=== PATIENT | female | born 1945 | race Caucasian/White ===

== ENCOUNTER → 2016-11-06 | Outpatient (CLI) | payer MEDICARE ==
[~2016-11-06] MED LIST: ALBUTEROL NEB INH; ALTA10CA3 PO; BISO5TAB5 PO; CLOP75TA2 PO; COMBIVENT INH; LEVO750T PO; LOPI600T PO; METF1000 PO; MONT10TA2 PO; NASAL SPRAY; PRED10TA2 PO; SPIRIVA INH; SYMBICORT INH; TRAZO50TA PO; ZOCO20TA PO
[2016-11-06 11:26] LABS: BASO % 0.4 % (0.0-1.0); EOS # 0.4 K/mm3 (0.0-0.50); EOS % 4.5 % (0.0-3.0); LYMPH # 1.8 K/mm3 (1.5-4.5); LYMPH % 18.9 % (24.0-44.0); MEAN CORPUSCULAR HEMOGLOBIN 29.5 pg (27.0-33.0); MEAN CORPUSCULAR HGB CONC 32.5 g/dl (32.0-36.5); MEAN CORPUSCULAR VOLUME 90.6 fl (80.0-96.0); MONO # 0.5 K/mm3 (0.0-0.8); MONO % 5.4 % (0.0-5.0); NEUTROPHILS # 6.1 K/mm3 (1.8-7.7); NEUTROPHILS % 69.1 % (36.0-66.0); WHITE BLOOD COUNT 8.8 K/mm3 (4.0-10.0)
[2016-11-06 12:28] LABS: ALBUMIN 3.5 GM/DL (3.2-5.2); ALKALINE PHOSPHATASE 91 U/L (45-117); ALT/SGPT 13 U/L (12-78); ANION GAP 7 MEQ/L (8-16); AST/SGOT 10 U/L (15-37); BILIRUBIN,TOTAL 0.5 MG/DL (0.2-1.0); BLOOD UREA NITROGEN 13 MG/DL (7-18); CALCIUM LEVEL 8.9 MG/DL (8.8-10.2); CARBON DIOXIDE LEVEL 29 MEQ/L (21-32); CHLORIDE LEVEL 103 MEQ/L (98-107); CHOLESTEROL LEVEL 93 MG/DL (<200); CREATININE FOR GFR 0.69 MG/DL (0.55-1.02); FREE T4 1.26 NG/DL (0.76-1.46); GLOMERULAR FILTRATION RATE > 60.0 (>39); GLUCOSE, FASTING 100 MG/DL (83-110); POTASSIUM SERUM 4.7 MEQ/L (3.5-5.1); SODIUM LEVEL 139 MEQ/L (136-145); TOTAL PROTEIN 7.4 GM/DL (6.4-8.2); TRIGLYCERIDES LEVEL 105 MG/DL (<150)
== END ==
LOC: M WUC 10:22
PROVIDERS: ATTEND Nurse Practitioner Adult Health
DX: E11.8 Type 2 diabetes mellitus with unspecified complications (principal); E55.9 Vitamin D deficiency, unspecified; Z79.899 Other long term (current) drug therapy; E78.00 Pure hypercholesterolemia, unspecified

== ENCOUNTER → 2017-02-12 | Outpatient (CLI) | payer MEDICARE ==
[2017-02-12 12:19] LABS: BASO % 0.5 % (0.0-1.0); EOS # 0.3 10^3/uL (0.0-0.50); EOS % 3.3 % (0.0-3.0); IMMATURE GRANULOCYTE % 0.4 % (0-0); LYMPH # 1.7 10^3/uL (1.5-4.5); LYMPH % 20.1 % (24.0-44.0); MEAN CORPUSCULAR HEMOGLOBIN 27.7 pg (27.0-33.0); MEAN CORPUSCULAR HGB CONC 30.9 g/dl (32.0-36.5); MEAN CORPUSCULAR VOLUME 89.7 fl (80.0-96.0); MONO # 0.6 10^3/uL (0.0-0.8); MONO % 6.9 % (0.0-5.0); NEUTROPHILS # 5.7 10^3/uL (1.8-7.7); NEUTROPHILS % 68.8 % (36.0-66.0); PLATELET COUNT, AUTOMATED 273 10^3/uL (150-450); RED CELL DISTRIBUTION WIDTH 14.6 % (11.5-14.5); WHITE BLOOD COUNT 8.2 10^3/uL (4.0-10.0)
[2017-02-12 14:06] LABS: ALBUMIN 3.6 GM/DL (3.2-5.2); ALBUMIN/GLOBULIN RATIO 0.88 (1.00-1.93); ALKALINE PHOSPHATASE 83 U/L (45-117); ALT/SGPT 16 U/L (12-78); ANION GAP 9 MEQ/L (8-16); AST/SGOT 13 U/L (15-37); BILIRUBIN,TOTAL 0.6 MG/DL (0.2-1.0); BLOOD UREA NITROGEN 8 MG/DL (7-18); CALCIUM LEVEL 9.1 MG/DL (8.8-10.2); CARBON DIOXIDE LEVEL 31 MEQ/L (21-32); CHLORIDE LEVEL 100 MEQ/L (98-107); CHOLESTEROL LEVEL 116 MG/DL (<200); CREATININE FOR GFR 0.69 MG/DL (0.55-1.02); FREE T4 1.33 NG/DL (0.76-1.46); GLOMERULAR FILTRATION RATE > 60.0 (>39); GLUCOSE, FASTING 100 MG/DL (83-110); POTASSIUM SERUM 4.6 MEQ/L (3.5-5.1); SODIUM LEVEL 140 MEQ/L (136-145); TOTAL PROTEIN 7.7 GM/DL (6.4-8.2); TRIGLYCERIDES LEVEL 129 MG/DL (<150)
== END ==
LOC: M WUC 10:41
PROVIDERS: ATTEND Nurse Practitioner Adult Health
DX: E78.00 Pure hypercholesterolemia, unspecified (principal); E55.9 Vitamin D deficiency, unspecified; E11.8 Type 2 diabetes mellitus with unspecified complications; E78.1 Pure hyperglyceridemia; Z79.899 Other long term (current) drug therapy

== ENCOUNTER → 2017-05-24 | Outpatient (CLI) | payer MEDICARE ==
[2017-05-24 12:44] LABS: BASO # 0.1 10^3/uL (0.0-0.2); BASO % 0.9 % (0.0-1.0); EOS # 0.4 10^3/uL (0.0-0.50); EOS % 5.2 % (0.0-3.0); HEMATOCRIT 45.4 % (36.0-47.0); HEMOGLOBIN 14.2 g/dl (12.0-16.0); IMMATURE GRANULOCYTE % 0.4 % (0-0); LYMPH # 1.6 10^3/uL (1.5-4.5); LYMPH % 23.8 % (24.0-44.0); MEAN CORPUSCULAR HEMOGLOBIN 28.3 pg (27.0-33.0); MEAN CORPUSCULAR HGB CONC 31.3 g/dl (32.0-36.5); MEAN CORPUSCULAR VOLUME 90.4 fl (80.0-96.0); MONO # 0.5 10^3/uL (0.0-0.8); MONO % 7.7 % (0.0-5.0); NEUTROPHILS # 4.2 10^3/uL (1.8-7.7); PLATELET COUNT, AUTOMATED 295 10^3/uL (150-450); RED BLOOD COUNT 5.02 10^6/uL (4.00-5.40); RED CELL DISTRIBUTION WIDTH 13.5 % (11.5-14.5); WHITE BLOOD COUNT 6.7 10^3/uL (4.0-10.0)
[2017-05-24 13:20] LABS: ESTIMATED AVERAGE GLUCOSE 146 MG/DL (60-110); HEMOGLOBIN A1c 6.7 %
[2017-05-24 13:26] LABS: TOTAL 25(OH) VITAMIN D 58.3 NG/ML (30.0-100.0)
[2017-05-24 13:27] LABS: ALBUMIN 3.7 GM/DL (3.2-5.2); ALBUMIN/GLOBULIN RATIO 0.97 (1.00-1.93); ALKALINE PHOSPHATASE 80 U/L (45-117); ALT/SGPT 11 U/L (12-78); ANION GAP 6 MEQ/L (8-16); AST/SGOT 15 U/L (7-37); BILIRUBIN,TOTAL 0.4 MG/DL (0.2-1.0); BLOOD UREA NITROGEN 14 MG/DL (7-18); CALCIUM LEVEL 8.9 MG/DL (8.8-10.2); CARBON DIOXIDE LEVEL 31 MEQ/L (21-32); CHLORIDE LEVEL 105 MEQ/L (98-107); CHOLESTEROL LEVEL 117 MG/DL (<200); CHOLESTEROL RISK RATIO 2.207 (<5); FREE T4 1.24 NG/DL (0.76-1.46); GLOMERULAR FILTRATION RATE > 60.0 (>39); GLUCOSE, FASTING 96 MG/DL (70-100); HDL CHOLESTEROL 53 MG/DL (>40); NON-HDL-C 64 MG/DL; POTASSIUM SERUM 4.6 MEQ/L (3.5-5.1); SODIUM LEVEL 142 MEQ/L (136-145); TOTAL PROTEIN 7.5 GM/DL (6.4-8.2); TRIGLYCERIDES LEVEL 140 MG/DL (<150)
[2017-05-24 13:37] LABS: CREATININE, URINE 26.3 MG/DL; MALB URINE SIEMENS < 5.0 MG/L
== END ==
LOC: M WUC 09:20
DX: E78.1 Pure hyperglyceridemia (principal); E78.00 Pure hypercholesterolemia, unspecified; E55.9 Vitamin D deficiency, unspecified; E11.8 Type 2 diabetes mellitus with unspecified complications; Z79.899 Other long term (current) drug therapy
CPT/HCPCS: 84443

== ENCOUNTER → 2017-08-27 | Outpatient (CLI) | payer MEDICARE ==
[2017-08-27 12:54] LABS: BASO % 0.4 % (0.0-1.0); EOS # 0.2 10^3/uL (0.0-0.50); EOS % 2.3 % (0.0-3.0); HEMATOCRIT 42.5 % (36.0-47.0); HEMOGLOBIN 13.3 g/dl (12.0-15.5); IMMATURE GRANULOCYTE # 0.1 10^3/uL (0-0); IMMATURE GRANULOCYTE % 0.7 % (0-3.0); LYMPH # 1.8 10^3/uL (1.5-4.5); LYMPH % 19.1 % (24.0-44.0); MEAN CORPUSCULAR HGB CONC 31.3 g/dl (32.0-36.5); MEAN CORPUSCULAR VOLUME 89.5 fl (80.0-96.0); MONO # 0.7 10^3/uL (0.0-0.8); MONO % 7.3 % (0.0-5.0); NEUTROPHILS # 6.7 10^3/uL (1.8-7.7); NEUTROPHILS % 70.2 % (36.0-66.0); PLATELET COUNT, AUTOMATED 310 10^3/uL (150-450); RED BLOOD COUNT 4.75 10^6/uL (4.00-5.40); RED CELL DISTRIBUTION WIDTH 13.6 % (11.5-14.5); WHITE BLOOD COUNT 9.5 10^3/uL (4.0-10.0)
[2017-08-27 13:31] LABS: TOTAL 25(OH) VITAMIN D 60.2 NG/ML (30.0-100.0)
[2017-08-27 13:39] LABS: ESTIMATED AVERAGE GLUCOSE 134 MG/DL (60-110); HEMOGLOBIN A1c 6.3 %
[2017-08-27 14:21] LABS: ALBUMIN 3.3 GM/DL (3.2-5.2); ALBUMIN/GLOBULIN RATIO 0.75 (1.00-1.93); ALKALINE PHOSPHATASE 115 U/L (45-117); ALT/SGPT 12 U/L (12-78); ANION GAP 9 MEQ/L (8-16); AST/SGOT 12 U/L (7-37); BILIRUBIN,TOTAL 0.3 MG/DL (0.2-1.0); BLOOD UREA NITROGEN 12 MG/DL (7-18); CALCIUM LEVEL 8.9 MG/DL (8.8-10.2); CARBON DIOXIDE LEVEL 30 MEQ/L (21-32); CHLORIDE LEVEL 103 MEQ/L (98-107); CHOLESTEROL LEVEL 94 MG/DL (<200); CREATININE FOR GFR 0.74 MG/DL (0.55-1.30); FREE T4 1.36 NG/DL (0.76-1.46); GLOMERULAR FILTRATION RATE > 60.0 (>39); GLUCOSE, FASTING 74 MG/DL (70-100); HDL CHOLESTEROL 50 MG/DL (>40); LDL CHOLESTEROL 23.4 MG/DL (<100); NON-HDL-C 44 MG/DL; POTASSIUM SERUM 4.8 MEQ/L (3.5-5.1); SODIUM LEVEL 142 MEQ/L (136-145); TOTAL PROTEIN 7.7 GM/DL (6.4-8.2); TRIGLYCERIDES LEVEL 103 MG/DL (<150)
== END ==
LOC: M WUC 10:42
DX: E78.1 Pure hyperglyceridemia (principal); E55.9 Vitamin D deficiency, unspecified; E11.8 Type 2 diabetes mellitus with unspecified complications; Z79.899 Other long term (current) drug therapy
CPT/HCPCS: 84443

== ENCOUNTER 2018-09-13 14:06 | Emergency (ER) | payer MEDICARE ==
[~2018-09-13] VITALS: Ht 154.9 cm; Wt 57.7 kg
[~2018-09-13 14:06] MED LIST changes: +TRAZ1TAB36 PO; -TRAZO50TA PO
[2018-09-13] MEDS ORDERED: COMBAER6 INH (14:44)
[2018-09-13] MEDS ORDERED: SYMB16INH INH (14:44)
[2018-09-13] MEDS ORDERED: JANU100T14 OR (14:44)
[2018-09-13 14:57] LABS: BASO % 0.2 % (0.0-1.0); HEMATOCRIT 43.3 % (36.0-47.0); HEMOGLOBIN 13.5 g/dl (12.0-15.5); LYMPH # 0.7 10^3/uL (1.5-4.5); LYMPH % 6.7 % (24.0-44.0); MEAN CORPUSCULAR HEMOGLOBIN 27.7 pg (27.0-33.0); MEAN CORPUSCULAR HGB CONC 31.2 g/dl (32.0-36.5); MEAN CORPUSCULAR VOLUME 88.9 fl (80.0-96.0); MONO # 0.1 10^3/uL (0.0-0.8); MONO % 1.4 % (0.0-5.0); NEUTROPHILS # 8.9 10^3/uL (1.8-7.7); NEUTROPHILS % 91.2 % (36.0-66.0); PLATELET COUNT, AUTOMATED 309 10^3/uL (150-450); RED BLOOD COUNT 4.87 10^6/uL (4.00-5.40); WHITE BLOOD COUNT 9.7 10^3/uL (4.0-10.0)
[2018-09-13 15:07] LABS: INR 1.07
[2018-09-13 15:08] LABS: PARTIAL THROMBOPLASTIN TIME 36.5 SECONDS (25.4-37.6)
--- NOTE | 2018-09-13 15:23 | REP ---
CHEST TWO VIEWS: Two views of the chest performed and compared to a prior study of 10/03/2012. Diffuse interstitial fibrotic change appears essentially stable. No definite superimposed acute infiltrate is seen. The heart appears slightly enlarged. There is calcification of the thoracic aorta. The mediastinal silhouette is unchanged. There are degenerative changes of the spine . IMPRESSION: Stable chronic findings without definite superimposed acute pulmonary disease. Electronically Signed by Sherwin Parks MD 09/14/2018 09:26 A
[2018-09-13 16:32] LABS: ALBUMIN 3.1 GM/DL (3.2-5.2); ALT/SGPT 13 U/L (12-78); BILIRUBIN,DIRECT < 0.1 MG/DL (0.0-0.2); BILIRUBIN,TOTAL 0.3 MG/DL (0.2-1.0); BLOOD UREA NITROGEN 13 MG/DL (7-18); CALCIUM LEVEL 8.5 MG/DL (8.8-10.2); CARBON DIOXIDE LEVEL 31 MEQ/L (21-32); CHLORIDE LEVEL 100 MEQ/L (98-107); CPK CREATINE PHOSPHOKINASE 40 U/L (26-192); CREATININE FOR GFR 0.91 MG/DL (0.55-1.30); GLOMERULAR FILTRATION RATE > 60.0 (>39); GLUCOSE, FASTING 208 MG/DL (70-100); LIPASE 227 U/L (73-393); MB/CK RELATIVE INDEX 4.25 (< OR =4); POTASSIUM SERUM 4.8 MEQ/L (3.5-5.1); SODIUM LEVEL 139 MEQ/L (136-145); THYROID STIMULATING HORMONE 0.969 uIU/ML (0.358-3.740); TOTAL PROTEIN 7.7 GM/DL (6.4-8.2); TROPONIN I < 0.02 NG/ML (< 0.10)
[2018-09-13] MEDS ORDERED: CLOPIDOGREL 300 MG TAB (PLAVIX) PO STA (17:09)
[2018-09-13] MEDS ORDERED: HEPARIN SOD (PORCINE) 5000 UNITS/ML VIAL IV ONE (17:15)
[2018-09-13] MEDS ORDERED: methylPREDNISolone INJ 125 MG/2 ML VIAL (J2930) IV ONE (17:15)
[2018-09-13] MEDS ORDERED: CLOPIDOGREL 300 MG TAB (PLAVIX) PO ONE (17:15)
[2018-09-13] MEDS ORDERED: IPRATROPIUM 0.5MG/ALBUTEROL 2.5MG INH SOL UD 3ML (DUONEB)(J7620) NEB ONE (17:15)
[2018-09-13] MEDS ORDERED: HEPARIN DRIP 25,000 UNITS in APPROPRIATE DILUENT 1 EA IV SCH (17:30)
[2018-09-13 17:50] VITALS: BP 168/72
--- NOTE | 2018-09-14 06:11 | ECGEPIP ---
[facility] - ED Test Date: 2018-09-13 Pat Name: SPENCER LANZA Department: Room: - Gender: F Nursing Support Worker: ct : 1945 Requested By: SUPRIYA Lau Order Number: [id number] Reading MD: Tom Stuart Measurements Intervals [place] Rate: 83 P: 77 CA: 203 QRS: -10 QRSD: 83 T: 90 QT: 350 QTc: 413 Interpretive Statements SINUS RHYTHM ANTEROSEPTAL MYOCARDIAL INFARCTION, OF INDETERMINATE AGE NSTTW ABNORMALITIES NO PRIORS FOR COMPARISON Electronically Signed on 09-14-2018 6:11:24 EDT by Tom Stuart
== END 2018-09-13 17:50 | disposition short-term general hospital (02) ==
LOC: EDBD 14:06 → M ED 14:06
DX: I20.0 Unstable angina (principal); I21.09 ST elevation (STEMI) myocardial infarction involving other coronary artery of anterior wall; E11.9 Type 2 diabetes mellitus without complications; I10 Essential (primary) hypertension; E87.5 Hyperkalemia; J45.909 Unspecified asthma, uncomplicated; J44.9 Chronic obstructive pulmonary disease, unspecified; I35.8 Other nonrheumatic aortic valve disorders; Z72.0 Tobacco use; Z79.899 Other long term (current) drug therapy; Z88.0 Allergy status to penicillin; Z88.8 Allergy status to other drugs, medicaments and biological substances; Z88.1 Allergy status to other antibiotic agents
CPT/HCPCS: 71046; 80048; 80076; 82550; 82553; 83690; 84439; 84443; 84484; 85025; 85610; 85730; 93005; 93041; 94640; 94760; 96374; 99285; J2930

== ENCOUNTER → 2018-09-27 | Outpatient (CLI) | payer MEDICARE ==
[~2018-09-27] MED LIST changes: +COMBAER6 INH; +JANU100T14 OR; +SYMB16INH INH
[2018-09-27 18:50] LABS: INR 1.92; PROTHROMBIN TIME 22.3 SECONDS (12.1-14.4)
== END ==
LOC: M WUC 15:47
DX: I97.89 Other postprocedural complications and disorders of the circulatory system, not elsewhere classified (principal); I48.91 Unspecified atrial fibrillation

== ENCOUNTER → 2018-09-30 | Outpatient (CLI) | payer MEDICARE ==
[2018-09-30 16:36] LABS: INR 1.54; PROTHROMBIN TIME 18.7 SECONDS (12.1-14.4)
== END ==
LOC: M WUC 15:25
PROVIDERS: ATTEND Nurse Practitioner Adult Health
DX: Z51.81 Encounter for therapeutic drug level monitoring (principal); Z79.899 Other long term (current) drug therapy; Z79.01 Long term (current) use of anticoagulants

== ENCOUNTER → 2018-10-20 | Outpatient (REF) | payer MEDICARE ==
[2018-10-20 13:50] LABS: BLOOD UREA NITROGEN 12 MG/DL (7-18); CALCIUM LEVEL 7.7 MG/DL (8.8-10.2); CARBON DIOXIDE LEVEL 36 MEQ/L (21-32); CHLORIDE LEVEL 100 MEQ/L (98-107); CREATININE FOR GFR 0.84 MG/DL (0.55-1.30); GLOMERULAR FILTRATION RATE > 60.0 (>39); GLUCOSE, FASTING 263 MG/DL (70-100); MAGNESIUM LEVEL 1.8 MG/DL (1.8-2.4); POTASSIUM SERUM 3.9 MEQ/L (3.5-5.1); SODIUM LEVEL 140 MEQ/L (136-145)
== END ==
LOC: M LAB REF 12:12
PROVIDERS: ATTEND Nurse Practitioner Adult Health
DX: E83.51 Hypocalcemia (principal); Z79.52 Long term (current) use of systemic steroids; E11.65 Type 2 diabetes mellitus with hyperglycemia

== ENCOUNTER → 2018-12-21 | Outpatient (REF) | payer MEDICARE ==
[2018-12-21 13:55] LABS: CALCIUM LEVEL 8.6 MG/DL (8.8-10.2); CREATININE FOR GFR 0.98 MG/DL (0.55-1.30); GLOMERULAR FILTRATION RATE 59.4 (>39); POTASSIUM SERUM 4.8 MEQ/L (3.5-5.1)
== END ==
LOC: M LAB REF 12:51
PROVIDERS: ATTEND Internal Medicine Cardiovascular Disease
DX: I48.91 Unspecified atrial fibrillation (principal); R60.9 Edema, unspecified

== ENCOUNTER 2020-01-28 13:40 | Inpatient (IN) | payer MEDICARE ==
[~2020-01-28] VITALS: Ht 154.9 cm; Wt 56.5 kg
[2020-01-28] VITALS (8 sets, daily range): BP systolic 134–170; BP diastolic 59–73
[~2020-01-28 13:40] MED LIST changes: -JANU100T14 OR; +JANU100T14 PO
[2020-01-28] MEDS ORDERED: METO25TA4 PO (14:30)
[2020-01-28] MEDS ORDERED: ELIQ5TAB PO (14:30)
[2020-01-28] MEDS ORDERED: AMLO2.5T3 PO (14:30)
[2020-01-28] MEDS ORDERED: INCR1INH INH (14:30)
[2020-01-28] MEDS ORDERED: FURO20TA2 PO (14:30)
[2020-01-28] MEDS ORDERED: RAMI1CAP26 PO (14:30)
[2020-01-28] MEDS ORDERED: MONT10TA4 PO (14:30)
[2020-01-28] MEDS ORDERED: ATOR80TA59 PO (14:30)
--- NOTE | 2020-01-28 15:00 | REPVR ---
PROCEDURE INFORMATION: Exam: XR Chest, 1 View Exam date and time: 01/28/2020 2:08 PM Age: 74 years old Clinical indication: Cough and shortness of breath; Additional info: Dyspnea/cough TECHNIQUE: Imaging protocol: XR of the chest Views: 1 view. COMPARISON: CR Chest, 2 view PA, Lat 09/13/2018 2:58 PM FINDINGS: Lungs: The lungs are again hyperinflated. There is again mild bibasilar atelectasis/scarring. The lungs are otherwise clear. Pleural space: Unremarkable. No pleural effusion. No pneumothorax. Heart/Mediastinum: The cardiomediastinal silhouette is fairly stable in appearance, allowing for differences in technique. Bones/joints: There has been interval median sternotomy. IMPRESSION: Hyperinflation and chronic changes, as on 09/13/18, without new disease. Electronically signed by: Sacha Pena On 01/28/2020 14:59:44 PM
[2020-01-28 15:18] LABS: BASO % 0.3 % (0.0-1.0); EOS # 0.5 10^3/uL (0.0-0.5); HEMATOCRIT 29.4 % (36.0-47.0); HEMOGLOBIN 8.3 g/dl (12.0-15.5); LYMPH # 1.5 10^3/uL (1.5-5.0); LYMPH % 13.3 % (24.0-44.0); MEAN CORPUSCULAR HEMOGLOBIN 24.2 pg (27.0-33.0); MEAN CORPUSCULAR HGB CONC 28.2 g/dl (32.0-36.5); MEAN CORPUSCULAR VOLUME 85.7 fl (80.0-96.0); MONO # 0.8 10^3/uL (0.0-0.8); MONO % 6.6 % (0.0-5.0); NEUTROPHILS # 8.6 10^3/uL (1.5-8.5); NEUTROPHILS % 75.5 % (36.0-66.0); PLATELET COUNT, AUTOMATED 287 10^3/uL (150-450); RED BLOOD COUNT 3.43 10^6/uL (4.00-5.40); WHITE BLOOD COUNT 11.4 10^3/uL (4.0-10.0)
[2020-01-28 16:00] LABS: ALBUMIN 2.7 GM/DL (3.2-5.2); ALT/SGPT 16 U/L (12-78); BILIRUBIN,DIRECT < 0.1 MG/DL (0.0-0.2); BILIRUBIN,TOTAL 0.2 MG/DL (0.2-1.0); NT-PRO BNP 468 PG/ML (<125); TOTAL PROTEIN 6.9 GM/DL (6.4-8.2)
[2020-01-28] MEDS ORDERED: PLAV1TAB2 PO (16:58)
--- NOTE | 2020-01-28 17:45 | HPEPDOC ---
[facility] Medical History & Physical Date of Admission Jan 28, 2020 Date of Service: Jan 28, 2020 Attending Physician: FLAKO FUENTES MD History and Physical CHIEF COMPLAINT: SOB HISTORY OF PRESENT ILLNESS: This is a 74 y/o F with PMHx COPD on 3L home O2, hypercapnia, DM, HTN, HLD, CAD s/p CABG, AF on eliquis on presents c/o SOB and BRBPR. Pt states SOB started 2 weeks ago with exertion. She has baseline COPD on 3L O2. Has non productive cough, and exertional dyspnea. No fevers/chills. Has been increasing here O2 with exertional now to 5L. Has no SOB while at rest. No CP/Palpitations. No N/V/abd pain. Pt notes that today, she had BRBPR x4. Mostly red, however she notes her stools are typically dark from iron supplments. Troponin negative in the ED. No acute ST changes on EKG. PAST MEDICAL HISTORY: As per HPI PAST SURGICAL HISTORY: b/l cataracts, tubal ligation, appendectomy. CABG SOCIAL HISTORY:45 pack year, occasional alcohol. FAMILY HISTORY:Non contributory ALLERGIES: Please see below. REVIEW OF SYSTEMS: HEENT: Denies sore throat/headache CARDIOVASCULAR: Denies chest pain/palpitations RESPIRATORY: + shortness of breath. No cough GASTROINTESTINAL: denies nausea/vomiting GENITOURINARY: Denies dysuria/urinary urgency. MUSCULOSKELETAL: Denies myalgias/arthralgias NEUROLOGICAL: Denies any focal weakness HOME MEDICATIONS: Please see below. PHYSICAL EXAMINATION: Vitals: (see below) General: No acute distress, laying comfortably in bed. HEENT: Moist mucous membranes. Neck: No JVD or lymphadenopathy Cardiac: RRR, No murmurs Pulm: Diminished breath sounds b/l with prolonged exp phase. No wheezing, rhonchi Abd: NT/ND + BS Ext: No edema or cyanosis LABORATORY DATA: See below. IMAGING: CXR 01/27 - hyperinflation; no infiltrate ASSESSMENT/PLAN: 1. Symptomatic anemia - transfuse 2U PRBC. NPO. Hold eliquis and antiplatelets. GI consult; discussed with Dr. Ford. CBC q6h. PPI IV BID. 2. COPD exacerbation - Check ABG. CXR with no infiltrate. Nebs. 3. H/o CABG - hold antiplatelets. 4. DM - SSI 5. HTN - Cont ramipril. Hold diuretics. DVT Prophy: SCDs Vital Signs Vital Signs Date Time Temp Pulse Resp B/P (MAP) Pulse Ox O2 Delivery O2 Flow Rate FiO2 01/28/20 14:31 Nasal Cannula 5.0 01/28/20 14:20 01/28/20 13:41 98.7 97 26 97 Laboratory Data Labs 24H Laboratory Tests 2 01/28/20 15:07: Immature Granulocyte % (Auto) 0.3, Neutrophils (%) (Auto) 75.5H, Lymphocytes (%) (Auto) 13.3L, Monocytes (%) (Auto) 6.6H, Eosinophils (%) (Auto) 4.0H, Basophils (%) (Auto) 0.3, Neutrophils # (Auto) 8.6H, Lymphocytes # (Auto) 1.5, Monocytes # (Auto) 0.8, Eosinophils # (Auto) 0.5, Basophils # (Auto) 0.0, Nucleated Red Blood Cells % (auto) 0.0, Total Bilirubin 0.2, Direct Bilirubin < 0.1, Aspartate Amino Transf (AST/SGOT) 16, Alanine Aminotransferase (ALT/SGPT) 16, Alkaline Phosphatase 56, CL-Zhc-[id number]-Type Natriuretic Peptide 468H, Total Protein 6.9, Albumin 2.7L, Albumin/Globulin Ratio 0.6L, Thyroid Stimulating Hormone (TSH) 1.810 CBC/BMP Laboratory Tests 01/28/20 15:07 Home Medications Scheduled Amlodipine Besylate (Amlodipine Besylate) 2.5 Mg Tablet, 2.5 MG PO DAILY Apixaban (Eliquis) 5 Mg Tablet, 5 MG PO BID Atorvastatin Calcium (Atorvastatin Calcium) 80 Mg Tablet, 40 MG PO Q2D Budesonide/Formoterol (Symbicort 160-4.5 Mcg Inhaler) 6 Gm Hfa.aer.ad, 2 PUFF INH BID Clopidogrel Bisulfate (Plavix) 75 Mg Tablet, 75 MG PO DAILY Furosemide (Furosemide) 20 Mg Tablet, 20 MG PO DAILY Ipratropium/Albuterol Sulfate (Combivent Respimat 20-100 Mcg) 4 Gm Mist.inhal, 1 PUFF INH QID Metoprolol Tartrate (Metoprolol Tartrate) 25 Mg Tablet, 12.5 MG PO BID Montelukast Sodium (Montelukast Sodium) 10 Mg Tablet, 10 MG PO QHS Ramipril (Ramipril) 10 Mg Capsule, 10 MG PO QPM Sitagliptin Phos/Metformin HCl (Janumet Xr 100-1,000 mg Tablet) 1 Each Tbmp.24hr, 1 TAB PO QPM Umeclidinium [place] (Incruse Ellipta) 62.5 Mcg Blst.w.dev, 1 PUFF INH QPM Allergies Coded Allergies: Penicillins (Verified Allergy, Unknown, 09/13/18) aspirin (Verified Allergy, Unknown, 09/13/18) ceftriaxone (Verified Allergy, Unknown, 09/13/18) A-FIB/CHADSVASC A-FIB History Current/History of A-Fib/PAF?: Yes Current PO Anticoag Therapy: Yes FLAKO FUENTES MD Jan 28, 2020 17:45
[2020-01-28 18:27] LABS: ABG BASE EXCESS 13.3 (-2.0-2.0); ABG HCO3 39.9 MEQ/L (22.0-26.0); ABG O2 SATURATION 93.4 % (95.0-99.0); ABG TOTAL CO2 41.9 MEQ/L (23.0-31.0); ABG pH (ARTERIAL) 7.403 UNITS (7.350-7.450)
[2020-01-28 18:35] LABS: ABG PARTIAL PRESSURE CO2 65.5 mmHg (35.0-45.0)
[2020-01-28 19:10] LABS: INR 1.43; PROTHROMBIN TIME 17.7 SECONDS (12.5-14.3)
[2020-01-28 19:11] LABS: PARTIAL THROMBOPLASTIN TIME 35.7 SECONDS (24.2-38.5)
[2020-01-28] MEDS: COMBIVENT RESPIMAT 100-20MCG INHALER 4GM INH SCH (20:00)
[2020-01-28] MEDS: SYMBICORT 160/4.5MCG INHALER 6GM INH SCH (20:32)
[2020-01-28] MEDS: MONTELUKAST 10 MG TAB PO SCH (20:52)
[2020-01-28] MEDS: PANTOPRAZOLE 40MG VIAL (C9113 PER 1) IV SCH (20:52)
[2020-01-28] MEDS ORDERED: ramipriL 5 MG CAP PO SCH (21:00)
[2020-01-29] VITALS: BP 164/72
[2020-01-29 01:10] LABS: BASO % 0.4 % (0.0-1.0); EOS # 0.4 10^3/uL (0.0-0.5); EOS % 4.2 % (0.0-3.0); HEMATOCRIT 31.9 % (36.0-47.0); HEMOGLOBIN 9.8 g/dl (12.0-15.5); LYMPH # 1.6 10^3/uL (1.5-5.0); LYMPH % 16.9 % (24.0-44.0); MEAN CORPUSCULAR HEMOGLOBIN 26.6 pg (27.0-33.0); MEAN CORPUSCULAR HGB CONC 30.7 g/dl (32.0-36.5); MEAN CORPUSCULAR VOLUME 86.4 fl (80.0-96.0); MONO # 0.8 10^3/uL (0.0-0.8); MONO % 7.7 % (0.0-5.0); NEUTROPHILS # 6.9 10^3/uL (1.5-8.5); NEUTROPHILS % 70.4 % (36.0-66.0); PLATELET COUNT, AUTOMATED 214 10^3/uL (150-450); RED BLOOD COUNT 3.69 10^6/uL (4.00-5.40); WHITE BLOOD COUNT 9.7 10^3/uL (4.0-10.0)
[2020-01-29 01:51] LABS: ALBUMIN 2.5 GM/DL (3.2-5.2); ALT/SGPT 13 U/L (12-78); BILIRUBIN,TOTAL 0.9 MG/DL (0.2-1.0); BLOOD UREA NITROGEN 19 MG/DL (7-18); CALCIUM LEVEL 8.5 MG/DL (8.8-10.2); CARBON DIOXIDE LEVEL 40 MEQ/L (21-32); CHLORIDE LEVEL 98 MEQ/L (98-107); CREATININE FOR GFR 0.96 MG/DL (0.55-1.30); GLOMERULAR FILTRATION RATE > 60.0 (>39); GLUCOSE, FASTING 93 MG/DL (70-100); POTASSIUM SERUM 4.7 MEQ/L (3.5-5.1); SODIUM LEVEL 137 MEQ/L (136-145); TOTAL PROTEIN 6.1 GM/DL (6.4-8.2)
[2020-01-29 04:00] VITALS: BP 154/66
[2020-01-29 05:44] LABS: INR 1.25
[2020-01-29 05:47] LABS: CALCIUM LEVEL 8.7 MG/DL (8.8-10.2); CREATININE FOR GFR 1.02 MG/DL (0.55-1.30); GLOMERULAR FILTRATION RATE 56.6 (>39); POTASSIUM SERUM 4.6 MEQ/L (3.5-5.1)
--- NOTE | 2020-01-29 06:14 | ECGEPIP ---
[facility] - ED Test Date: 2020-01-28 Pat Name: SPENCER LANZA Department: Room: [place] [address] Gender: Female Relationship Mgr: AZALEA : 1945 Requested By: MARY HENLEY D.O. Order Number: [id number] Reading MD: Tom Stuart Measurements Intervals [place] Rate: 84 P: 79 HI: 187 QRS: -1 QRSD: 78 T: 147 QT: 341 QTc: 403 Interpretive Statements SINUS RHYTHM ANTEROSEPTAL MYOCARDIAL INFARCTION, OF INDETERMINATE AGE NSTTW ABNORMALITY(S) SIMILAR TO 09/13/18 Electronically Signed on 01-29-2020 6:14:15 EDT by Tom Stuart
[2020-01-29] MEDS: SYMBICORT 160/4.5MCG INHALER 6GM INH SCH ×2 (07:30→20:20)
[2020-01-29] MEDS: COMBIVENT RESPIMAT 100-20MCG INHALER 4GM INH SCH ×4 (07:31→20:00)
[2020-01-29 07:56] VITALS: BP 150/68
[2020-01-29] MEDS: PANTOPRAZOLE 40MG VIAL (C9113 PER 1) IV SCH ×2 (08:24→20:32)
[2020-01-29] MEDS ORDERED: PREVNAR 13 VACCINE SYRINGE IM ONE (09:00)
[2020-01-29 13:30] VITALS: BP 152/68
--- NOTE | 2020-01-29 13:59 | IPNPDOC ---
Text Note Date of Service The patient was seen on 01/29/20. NOTE Subjective: Pt denies CP/SOB/palliations. Feels well. Had another blood bowel movement with clots. No abd pain. PHYSICAL EXAMINATION: Vitals: (see below) General: No acute distress, laying comfortably in bed. HEENT: Moist mucous membranes. Neck: No JVD or lymphadenopathy Cardiac: RRR, No murmurs Pulm: Diminished breath sounds b/l with prolonged exp phase; mild exp wheezing. No rhonchi Abd: NT/ND + BS Ext: No edema or cyanosis LABORATORY DATA: See below. IMAGING: CXR 01/27 - hyperinflation; no infiltrate ASSESSMENT/PLAN: 1. Symptomatic anemia - transfuse 3U PRBC. NPO except ice chips. Hold eliquis and antiplatelets. GI consulted; Bleeding scan today. discussed with Dr. Ford. CBC q6h. PPI IV BID. 2. COPD exacerbation - Check ABG. CXR with no infiltrate. Nebs. start IV solumedrol 20mg IV BID 3. H/o CABG - hold antiplatelets. 4. DM - SSI 5. HTN - Hold BP meds/diuretivs. DVT Prophy: SCDs VS,Fishbone, I+O VS, Fishbone, I+O Laboratory Tests 01/28/20 15:07 01/29/20 01:01 01/29/20 05:12 Vital Signs Date Time Temp Pulse Resp B/P (MAP) Pulse Ox O2 Delivery O2 Flow Rate FiO2 01/29/20 13:30 98.0 96 16 152/68 (96) 92 Nasal Cannula 5.0 I&O- Last 24 Hours up to 6 AM 01/29/20 06:00 Intake Total 800 ml Output Total 150 ml Balance 650 ml FLAKO FUENTES MD Jan 29, 2020 13:59
[2020-01-29] MEDS: methylPREDNISolone 40MG 1ML VIAL IV SCH ×2 (15:15→23:50)
[2020-01-29 16:00] VITALS: BP 162/68
[2020-01-29] MEDS: NS 1,000 ML IV SCH (18:00)
[2020-01-29 18:10] LABS: HEMATOCRIT 34.7 % (36.0-47.0); HEMOGLOBIN 10.8 g/dl (12.0-15.5); MEAN CORPUSCULAR HEMOGLOBIN 26.8 pg (27.0-33.0); MEAN CORPUSCULAR HGB CONC 31.1 g/dl (32.0-36.5); MEAN CORPUSCULAR VOLUME 86.1 fl (80.0-96.0); PLATELET COUNT, AUTOMATED 243 10^3/uL (150-450); RED BLOOD COUNT 4.03 10^6/uL (4.00-5.40); WHITE BLOOD COUNT 13.8 10^3/uL (4.0-10.0)
[2020-01-29 20:00] VITALS: BP 146/70
[2020-01-29] MEDS: MONTELUKAST 10 MG TAB PO SCH (20:32)
[2020-01-30] VITALS: BP 142/75
[2020-01-30 00:18] LABS: HEMATOCRIT 32.2 % (36.0-47.0); HEMOGLOBIN 10.1 g/dl (12.0-15.5); MEAN CORPUSCULAR HEMOGLOBIN 27.1 pg (27.0-33.0); MEAN CORPUSCULAR HGB CONC 31.4 g/dl (32.0-36.5); MEAN CORPUSCULAR VOLUME 86.3 fl (80.0-96.0); PLATELET COUNT, AUTOMATED 225 10^3/uL (150-450); RED BLOOD COUNT 3.73 10^6/uL (4.00-5.40); WHITE BLOOD COUNT 9.4 10^3/uL (4.0-10.0)
[2020-01-30 04:00] VITALS: BP 141/82
[2020-01-30 05:41] LABS: HEMATOCRIT 33.6 % (36.0-47.0); HEMOGLOBIN 10.3 g/dl (12.0-15.5); MEAN CORPUSCULAR HEMOGLOBIN 26.4 pg (27.0-33.0); MEAN CORPUSCULAR HGB CONC 30.7 g/dl (32.0-36.5); MEAN CORPUSCULAR VOLUME 86.2 fl (80.0-96.0); PLATELET COUNT, AUTOMATED 248 10^3/uL (150-450); WHITE BLOOD COUNT 6.8 10^3/uL (4.0-10.0)
[2020-01-30 05:51] LABS: INR 1.09; PROTHROMBIN TIME 14.3 SECONDS (12.5-14.3)
[2020-01-30] MEDS: NS 1,000 ML IV SCH (06:44)
[2020-01-30] MEDS: COMBIVENT RESPIMAT 100-20MCG INHALER 4GM INH SCH (07:37)
[2020-01-30 07:57] VITALS: BP 162/70
[2020-01-30] MEDS: PANTOPRAZOLE 40MG VIAL (C9113 PER 1) IV SCH ×2 (08:31→20:26)
[2020-01-30] MEDS: METOPROLOL TART 12.5 MG PER 1/2 TAB PO SCH ×2 (09:00→20:27)
[2020-01-30] MEDS: SYMBICORT 160/4.5MCG INHALER 6GM INH SCH ×2 (09:06→19:57)
[2020-01-30] MEDS ORDERED: IPRATROPIUM 0.5MG/ALBUTEROL 2.5MG INH SOL UD 3ML (DUONEB) NEB PRN (09:15)
[2020-01-30] MEDS ORDERED: LEVALBUTEROL 1.25 MG/0.5 ML CONCENTRATE NEB NEB PRN (10:30)
[2020-01-30] MEDS: methylPREDNISolone 40MG 1ML VIAL IV SCH ×2 (11:00→23:57)
[2020-01-30] MEDS: LEVALBUTEROL 1.25 MG/0.5 ML CONCENTRATE NEB NEB SCH ×3 (11:16→19:57)
[2020-01-30 12:00] VITALS: BP 164/70
[2020-01-30 12:12] LABS: HEMATOCRIT 31.1 % (36.0-47.0); HEMOGLOBIN 9.6 g/dl (12.0-15.5); MEAN CORPUSCULAR HEMOGLOBIN 26.5 pg (27.0-33.0); MEAN CORPUSCULAR HGB CONC 30.9 g/dl (32.0-36.5); MEAN CORPUSCULAR VOLUME 85.9 fl (80.0-96.0); PLATELET COUNT, AUTOMATED 257 10^3/uL (150-450); RED BLOOD COUNT 3.62 10^6/uL (4.00-5.40); WHITE BLOOD COUNT 9.8 10^3/uL (4.0-10.0)
[2020-01-30] MEDS: POLYTRIM OPTH DROPS 10ML OU SCH ×4 (13:05→20:26)
[2020-01-30] MEDS: POLYVINYL ALCOHOL OPHTH SOLN 15 ML(LIQUITEARS) OU SCH ×3 (13:05→20:26)
[2020-01-30] MEDS: ACETAMINOPHEN TAB 650MG DOSE (2X325MG) PO PRN ×2 (14:28→20:36)
[2020-01-30 16:00] VITALS: BP 162/80
--- NOTE | 2020-01-30 16:30 | IPNPDOC ---
Date Seen The patient was seen on 01/30/20. Progress Note SUBJECTIVE: Patient states to feel more short of breath today than yesterday. Planning of itching eyes bilaterally, added and antibiotic eyedrops and refresh. She has had several bloody bowel movements today. She remains on 96% on 5 L. She is going for endoscopy 02/02/2020. PHYSICAL EXAMINATION: Vitals: (see below) General: No acute distress, laying comfortably in bed. HEENT: Moist mucous membranes. Neck: No JVD or lymphadenopathy Cardiac: RRR, No murmurs Pulm: Diminished breath sounds b/l with prolonged exp phase; mild exp wheezing. No rhonchi Abd: NT/ND + BS Ext: No edema or cyanosis LABORATORY DATA: See below. IMAGING: No new imaging ASSESSMENT/PLAN: Acute blood loss anemia 2/2 to GI bleed -S/p 2 units PRBC transfusion this admission -H/H ., several bloody bowel movements overnight and today -NPO except meds -Endoscopy 02/02/20, holding eliquis and antiplatelet -GI following (Dr. Ford). -PPI BID, IVFs gentle -CBC Q8hrs GI bleed, source unknown -Please see above COPD exacerbation -Remains on 5 L NC, states to feel more SOB today -CXR with no infiltrate. -C/w nebulizer ATC, PRN and methylprednisolone (careful with GI bleed) -Supplemental O2 Tachycardia likely 2/2 to albuterol vs. GI bleed vs. uncontrolled atrial fib -HR >100 -Monitor H/H closely -Changed to xopenex ATC and PRN -Monitor on tele -On gentle IVFs Conjunctivitis bilaterally -Started polymyxin B eye drops -Refresh also added -F/u closely H/o CABG - hold antiplatelets. DM -BS stable and around 90's -Not currently on ISS -F/u FS Q6hrs HTN -Uncontrolled today -Resumed home meds -monitor closely Chronic atrial fib -Restarted BB due to tachycardia -tele GERD -PPI BID DVT Px: -SCD DISPOSITION: Currently inpatient. Plan is EGD this coming 02/02/20. GI following. VS, I&O, 24H, Fishbone Vital Signs/I&O Vital Signs Date Time Temp Pulse Resp B/P (MAP) Pulse Ox O2 Delivery O2 Flow Rate FiO2 10/6/20 16:00 99.1 93 16 162/80 (107) 94 Nasal Cannula 5.0 I&O- Last 24 Hours up to 6 AM 01/30/20 06:00 Intake Total 600 ml Output Total 1000 ml Balance -400 ml Laboratory Data 24H LABS Laboratory Tests 2 01/29/20 17:39: Nucleated Red Blood Cells % (auto) 0.0 01/30/20 00:02: Nucleated Red Blood Cells % (auto) 0.0 01/30/20 05:18: Nucleated Red Blood Cells % (auto) 0.0, Prothrombin Time 14.3H, Prothromb Time International Ratio 1.09 01/30/20 11:54: Nucleated Red Blood Cells % (auto) 0.0 CBC/BMP Laboratory Tests 01/29/20 17:39 01/30/20 00:02 01/30/20 05:18 01/30/20 11:54 Microbiology Microbiology 01/28/20 Blood Culture - Preliminary, Resulted No growth after 24 hours . All specim... 01/28/20 Blood Culture - Preliminary, Resulted No growth after 24 hours . All specim... Current Medications Current Medications Medications (Trade) Dose Ordered Sig/Anish Route PRN Reason Start Time Stop Time Status Last Admin Dose Admin Acetaminophen (Tylenol Tab) 650 mg Q4HP PRN PO PAIN OR FEVER 01/30/20 14:30 01/30/20 14:28 Albuterol/ Ipratropium (Combivent Respimat 100-20mcg) 1 puff RQID INH 01/28/20 20:00 01/30/20 10:32 DC 01/30/20 07:37 Albuterol/ Ipratropium (Duoneb (Ipr 0.5mg/Alb 2.5mg)) 3 ml Q4HP PRN NEB SOB/WHEEZING 01/30/20 09:15 01/30/20 10:32 DC Amlodipine Besylate (Norvasc) 2.5 mg DAILY PO 01/30/20 09:00 01/30/20 11:00 Artificial Tears (Akwa Tears) 2 drop TID OU 01/30/20 09:00 01/30/20 13:05 Budesonide/ Formoterol Fumarate (Symbicort 160/ 4.5mcg) 2 puff BID INH 01/28/20 21:00 01/30/20 09:06 Home Med (Med Rec Complete!) ASDIRECTED XX 01/28/20 17:00 01/28/20 17:02 DC Levalbuterol HCl (Xopenex Neb) 1.25 mg Q2HP PRN NEB SHORTNESS OF BREATH 01/30/20 10:45 Levalbuterol HCl (Xopenex Neb) 1.25 mg Q4HP PRN NEB SHORTNESS OF BREATH 01/30/20 10:30 01/30/20 10:46 DC Levalbuterol HCl (Xopenex Neb) 1.25 mg RQ4H NEB 01/30/20 12:00 01/30/20 15:01 Methylprednisolone (SOLU medrol) 20 mg Q12H IV 01/29/20 11:00 01/30/20 11:00 Metoprolol Tartrate (Lopressor) 12.5 mg BID PO 01/30/20 09:00 01/30/20 09:00 Montelukast Sodium (Singulair) 10 mg QHS PO 01/28/20 21:00 01/29/20 20:32 Pantoprazole Sodium (Protonix) 40 mg BID IV 01/28/20 21:00 01/30/20 08:31 Polymyxin/ Trimethoprim Sulfate (Polytrim Ophth Drops) 1 drop 6XD OU 01/30/20 12:00 02/06/20 12:00 01/30/20 14:28 Ramipril (Altace) 10 mg QPM PO 01/28/20 21:00 01/28/20 17:58 DC Sodium Chloride 1,000 ml @ 80 mls/hr [id number] IV 01/29/20 17:30 01/30/20 18:29 01/30/20 06:44 Allergies Coded Allergies: Penicillins (Verified Allergy, Unknown, 09/13/18) aspirin (Verified Allergy, Unknown, 09/13/18) ceftriaxone (Verified Allergy, Unknown, 09/13/18) Izabel Dillard MD Jan 30, 2020 16:30
[2020-01-30 17:26] LABS: HEMATOCRIT 33.6 % (36.0-47.0); HEMOGLOBIN 10.5 g/dl (12.0-15.5); MEAN CORPUSCULAR HEMOGLOBIN 26.8 pg (27.0-33.0); MEAN CORPUSCULAR HGB CONC 31.3 g/dl (32.0-36.5); MEAN CORPUSCULAR VOLUME 85.7 fl (80.0-96.0); PLATELET COUNT, AUTOMATED 275 10^3/uL (150-450); RED BLOOD COUNT 3.92 10^6/uL (4.00-5.40); WHITE BLOOD COUNT 10.1 10^3/uL (4.0-10.0)
[2020-01-30 20:00] VITALS: BP 154/76
[2020-01-30] MEDS: MONTELUKAST 10 MG TAB PO SCH (20:26)
[2020-01-31] VITALS (7 sets, daily range): BP systolic 129–162; BP diastolic 65–89; O2SAT 92
[2020-01-31] MEDS: LEVALBUTEROL 1.25 MG/0.5 ML CONCENTRATE NEB NEB SCH ×7 (00:24→23:24)
[2020-01-31 00:34] LABS: HEMATOCRIT 33.5 % (36.0-47.0); HEMOGLOBIN 10.5 g/dl (12.0-15.5); MEAN CORPUSCULAR HEMOGLOBIN 26.9 pg (27.0-33.0); MEAN CORPUSCULAR HGB CONC 31.3 g/dl (32.0-36.5); MEAN CORPUSCULAR VOLUME 85.9 fl (80.0-96.0); PLATELET COUNT, AUTOMATED 278 10^3/uL (150-450); WHITE BLOOD COUNT 12.6 10^3/uL (4.0-10.0)
[2020-01-31 05:36] LABS: HEMATOCRIT 32.5 % (36.0-47.0); HEMOGLOBIN 10.2 g/dl (12.0-15.5); MEAN CORPUSCULAR HEMOGLOBIN 27.2 pg (27.0-33.0); MEAN CORPUSCULAR HGB CONC 31.4 g/dl (32.0-36.5); MEAN CORPUSCULAR VOLUME 86.7 fl (80.0-96.0); PLATELET COUNT, AUTOMATED 256 10^3/uL (150-450); RED BLOOD COUNT 3.75 10^6/uL (4.00-5.40); WHITE BLOOD COUNT 11.1 10^3/uL (4.0-10.0)
[2020-01-31 05:48] LABS: INR 1.05; PROTHROMBIN TIME 13.9 SECONDS (12.5-14.3)
[2020-01-31 05:59] LABS: ALBUMIN 2.8 GM/DL (3.2-5.2); ALT/SGPT 18 U/L (12-78); BILIRUBIN,TOTAL 0.5 MG/DL (0.2-1.0); BLOOD UREA NITROGEN 14 MG/DL (7-18); CALCIUM LEVEL 8.3 MG/DL (8.8-10.2); CARBON DIOXIDE LEVEL 34 MEQ/L (21-32); CHLORIDE LEVEL 102 MEQ/L (98-107); CREATININE FOR GFR 0.77 MG/DL (0.55-1.30); GLOMERULAR FILTRATION RATE > 60.0 (>39); GLUCOSE, FASTING 160 MG/DL (70-100); POTASSIUM SERUM 3.9 MEQ/L (3.5-5.1); SODIUM LEVEL 142 MEQ/L (136-145); TOTAL PROTEIN 6.6 GM/DL (6.4-8.2)
[2020-01-31] MEDS: POLYTRIM OPTH DROPS 10ML OU SCH ×6 (06:16→22:18)
[2020-01-31] MEDS: PANTOPRAZOLE 40MG VIAL (C9113 PER 1) IV SCH ×2 (07:51→22:16)
[2020-01-31] MEDS: POLYVINYL ALCOHOL OPHTH SOLN 15 ML(LIQUITEARS) OU SCH ×3 (07:51→22:18)
[2020-01-31] MEDS: METOPROLOL TART 12.5 MG PER 1/2 TAB PO SCH ×2 (07:52→22:17)
[2020-01-31] MEDS: SYMBICORT 160/4.5MCG INHALER 6GM INH SCH ×2 (11:17→19:08)
[2020-01-31] MEDS: methylPREDNISolone 40MG 1ML VIAL IV SCH ×2 (11:45→22:18)
--- NOTE | 2020-01-31 15:40 | IPNPDOC ---
Date Seen The patient was seen on 01/31/20. Progress Note SUBJECTIVE: Patient feeling much improved today. Itching eyes improved with eye drops, less conjunctivitis. One bloody bowel movement this AM with clots, frequency has decreased. Decreased O2 requirement, at home uses 3-5 L NC. Denies chest pain, n/v/d, increased SOB, fevers or chills. PHYSICAL EXAMINATION: Vitals: (see below) General: No acute distress, laying comfortably in bed. HEENT: Moist mucous membranes., NC in place Neck: No JVD or lymphadenopathy Cardiac: RRR, No murmurs Pulm: Diminished breath sounds b/l with prolonged exp phase; mild exp wheezing. No rhonchi Abd: NT/ND + BS Skin: areas around orbits of eyes b/l appear slightly pinkish/purplish, since admission Ext: No edema or cyanosis LABORATORY DATA: See below. IMAGING: No new imaging ASSESSMENT/PLAN: Acute blood loss anemia 2/2 to GI bleed -S/p 2 units PRBC transfusion this admission -H/H , 2 bloody bowel movements over yesterday and 1 this AM, smaller and decreasing in frequency per patient. -CLD -Endoscopy 02/02/20, holding eliquis and antiplatelet -GI following (Dr. Ford). -PPI BID -CBC Q8hrs GI bleed, source unknown -Please see above COPD exacerbation -Decreased to 3 L NC today, home amount. -C/w nebulizer ATC, PRN and methylprednisolone (careful with GI bleed) -Supplemental O2 Tachycardia likely 2/2 to albuterol vs. GI bleed vs. uncontrolled atrial fib -HR 75-107, much improved after addition of home meds and eliminating albuterol/duonebs -Monitor H/H closely -Monitor on tele Conjunctivitis bilaterally -Improved today -C/w polymyxin B eye drops, Refresh -F/u closely HTN -Uncontrolled today but resumed home rampiril in addition to other meds -monitor Cr closely with ACEi restarted H/o CABG - hold antiplatelets. DM -BS stable and around 90's -Not currently on ISS -F/u FS Q6hrs Chronic atrial fib -Controlled -C/w current medications -tele GERD -PPI BID DVT Px: -SCD DISPOSITION: Currently inpatient. Plan is EGD this coming 02/02/20. GI following. VS, I&O, 24H, Fishbone Vital Signs/I&O Vital Signs Date Time Temp Pulse Resp B/P (MAP) Pulse Ox O2 Delivery O2 Flow Rate FiO2 01/31/20 12:00 3.0 01/31/20 12:00 99.1 83 18 162/70 (100) 100 Nasal Cannula I&O- Last 24 Hours up to 6 AM 01/31/20 06:00 Intake Total 660 ml Output Total 2750 ml Balance -2090 ml Laboratory Data 24H LABS Laboratory Tests 2 01/30/20 17:02: Nucleated Red Blood Cells % (auto) 0.0 01/31/20 00:01: Bedside Glucose (Misc Panel) 151H 01/31/20 00:17: Nucleated Red Blood Cells % (auto) 0.0 01/31/20 05:22: Nucleated Red Blood Cells % (auto) 0.0, Prothrombin Time 13.9, Prothromb Time International Ratio 1.05, Anion Gap 6L, Glomerular Filtration Rate > 60.0, Calcium Level 8.3L, Total Bilirubin 0.5, Aspartate Amino Transf (AST/SGOT) 26, Alanine Aminotransferase (ALT/SGPT) 18, Alkaline Phosphatase 54, Total Protein 6.6, Albumin 2.8L, Albumin/Globulin Ratio 0.7L 01/31/20 11:47: Bedside Glucose (Misc Panel) 184H CBC/BMP Laboratory Tests 01/30/20 17:02 01/31/20 00:17 01/31/20 05:22 Microbiology Microbiology 01/28/20 Blood Culture - Preliminary, Resulted No Growth after 48 hours. All Specime... 01/28/20 Blood Culture - Preliminary, Resulted No Growth after 48 hours. All Specime... Current Medications Current Medications Medications (Trade) Dose Ordered Sig/Anish Route PRN Reason Start Time Stop Time Status Last Admin Dose Admin Acetaminophen (Tylenol Tab) 650 mg Q4HP PRN PO PAIN OR FEVER 01/30/20 14:30 01/30/20 20:36 Albuterol/ Ipratropium (Combivent Respimat 100-20mcg) 1 puff RQID INH 01/28/20 20:00 01/30/20 10:32 DC 01/30/20 07:37 Albuterol/ Ipratropium (Duoneb (Ipr 0.5mg/Alb 2.5mg)) 3 ml Q4HP PRN NEB SOB/WHEEZING 01/30/20 09:15 01/30/20 10:32 DC Amlodipine Besylate (Norvasc) 2.5 mg DAILY PO 01/30/20 09:00 01/31/20 07:52 Artificial Tears (Akwa Tears) 2 drop TID OU 01/30/20 09:00 01/31/20 07:51 Budesonide/ Formoterol Fumarate (Symbicort 160/ 4.5mcg) 2 puff BID INH 01/28/20 21:00 01/31/20 11:17 Home Med (Med Rec Complete!) ASDIRECTED XX 01/28/20 17:00 01/28/20 17:02 DC Levalbuterol HCl (Xopenex Neb) 1.25 mg Q2HP PRN NEB SHORTNESS OF BREATH 01/30/20 10:45 Levalbuterol HCl (Xopenex Neb) 1.25 mg Q4HP PRN NEB SHORTNESS OF BREATH 01/30/20 10:30 01/30/20 10:46 DC Levalbuterol HCl (Xopenex Neb) 1.25 mg RQ4H NEB 01/30/20 12:00 01/31/20 15:09 Methylprednisolone (SOLU medrol) 20 mg Q12H IV 01/29/20 11:00 01/31/20 11:45 Metoprolol Tartrate (Lopressor) 12.5 mg BID PO 01/30/20 09:00 01/31/20 07:52 Montelukast Sodium (Singulair) 10 mg QHS PO 01/28/20 21:00 01/30/20 20:26 Pantoprazole Sodium (Protonix) 40 mg BID IV 01/28/20 21:00 01/31/20 07:51 Polymyxin/ Trimethoprim Sulfate (Polytrim Ophth Drops) 1 drop 6XD OU 01/30/20 12:00 02/06/20 12:00 01/31/20 11:45 Ramipril (Altace) 10 mg QHS PO 01/31/20 21:00 Ramipril (Altace) 10 mg QPM PO 01/28/20 21:00 01/28/20 17:58 DC Sodium Chloride 1,000 ml @ 80 mls/hr [id number] IV 01/29/20 17:30 01/30/20 18:29 DC 01/30/20 06:44 Allergies Coded Allergies: Penicillins (Verified Allergy, Unknown, 09/13/18) aspirin (Verified Allergy, Unknown, 09/13/18) ceftriaxone (Verified Allergy, Unknown, 09/13/18) Izabel Dillard MD Jan 31, 2020 15:40
[2020-01-31 16:40] LABS: HEMATOCRIT 31.5 % (36.0-47.0); HEMOGLOBIN 9.9 g/dl (12.0-15.5); MEAN CORPUSCULAR HEMOGLOBIN 26.9 pg (27.0-33.0); MEAN CORPUSCULAR HGB CONC 31.4 g/dl (32.0-36.5); MEAN CORPUSCULAR VOLUME 85.6 fl (80.0-96.0); PLATELET COUNT, AUTOMATED 268 10^3/uL (150-450); RED BLOOD COUNT 3.68 10^6/uL (4.00-5.40)
[2020-01-31] MEDS: ramipriL 5 MG CAP PO SCH (22:17)
[2020-01-31] MEDS: MONTELUKAST 10 MG TAB PO SCH (22:18)
[2020-01-31] MEDS: ACETAMINOPHEN TAB 650MG DOSE (2X325MG) PO PRN (22:24)
[2020-02-01] VITALS (7 sets, daily range): BP systolic 140–168; BP diastolic 67–90
[2020-02-01 01:36] LABS: HEMATOCRIT 31.1 % (36.0-47.0); HEMOGLOBIN 9.6 g/dl (12.0-15.5); MEAN CORPUSCULAR HEMOGLOBIN 26.7 pg (27.0-33.0); MEAN CORPUSCULAR HGB CONC 30.9 g/dl (32.0-36.5); MEAN CORPUSCULAR VOLUME 86.6 fl (80.0-96.0); PLATELET COUNT, AUTOMATED 239 10^3/uL (150-450); RED BLOOD COUNT 3.59 10^6/uL (4.00-5.40); WHITE BLOOD COUNT 9.8 10^3/uL (4.0-10.0)
[2020-02-01] MEDS: LEVALBUTEROL 1.25 MG/0.5 ML CONCENTRATE NEB NEB SCH ×6 (04:04→23:36)
[2020-02-01] MEDS: POLYTRIM OPTH DROPS 10ML OU SCH ×6 (06:07→20:42)
[2020-02-01] MEDS: SYMBICORT 160/4.5MCG INHALER 6GM INH SCH ×2 (07:11→19:09)
--- NOTE | 2020-02-01 07:26 | ECHO ---
DATE OF PROCEDURE: 01/29/2020 Age: 74 Gender: F Height: 155 cm Weight: 56 kg REFERRING PHYSICIAN: Dr. Arley Schultz INDICATION: Dyspnea MEASUREMENTS: IVS 0.9 LV 4.6 LVPW 1.0 LA 3.5 Aorta 3.2 RV 3.2 IVC 1.3 Mitral E wave velocity is 63; A wave 110 E prime septal 7.6 E prime lateral 7.0 FINDINGS: This study is of limited technical quality with difficult visualization. The patient is in sinus rhythm. Left ventricle is normal size and has normal systolic function; I estimate ejection fraction (EF) around 65-70%. No obvious segmental wall motion abnormalities were appreciated. Right ventricle as well appears grossly normal. Both atria appear at least mildly enlarged. Aortic valve is heavily calcified but it was poorly visualized and I cannot comment on its structure or mobility. Mitral valve also exhibits mild degenerative abnormalities but mobility of leaflets is preserved. Tricuspid valve is normal. Pulmonic valve was not well seen. No pericardial effusion is noted but pericardial fat pad is present. Inferior vena cava is of normal size and appropriately collapses on inspiration indicative of normal central venous pressure. Aortic root and visualized segment of aortic arch appeared grossly normal. Doppler interrogation of aortic valve reveals no insufficiency and mild stenosis with mean gradient only 9 mmHg. There is trace mitral insufficiency, and tricuspid valve is functionally competent. Mitral inflow pattern and tissue Doppler imaging of mitral annulus revealed grade 1 diastolic dysfunction. CONCLUSIONS: 1. Study is of fair technical quality. Patient is in sinus rhythm. 2. Normal left ventricular size with preserved left ventricular systolic function and grade 1 diastolic dysfunction. 3. Poorly visualized sclerotic aortic valve with functionally mild stenosis and no insufficiency. 4. Normal central venous pressure. 5. Unable to estimate pulmonary artery pressure. 6. Pericardial fat pad but no visualized effusion. COMMENTS: No obvious explanation for cause of dyspnea. MTDD
[2020-02-01] MEDS ORDERED: MOM 30ML SUSPENSION UDC PO ONE (08:00)
[2020-02-01] MEDS: METOPROLOL TART 12.5 MG PER 1/2 TAB PO SCH ×2 (08:05→20:42)
[2020-02-01] MEDS: PANTOPRAZOLE 40MG VIAL (C9113 PER 1) IV SCH ×2 (08:05→20:41)
[2020-02-01] MEDS: POLYVINYL ALCOHOL OPHTH SOLN 15 ML(LIQUITEARS) OU SCH ×3 (08:12→20:42)
[2020-02-01 09:23] LABS: HEMOGLOBIN 10.3 g/dl (12.0-15.5); MEAN CORPUSCULAR HEMOGLOBIN 26.7 pg (27.0-33.0); MEAN CORPUSCULAR HGB CONC 30.3 g/dl (32.0-36.5); MEAN CORPUSCULAR VOLUME 88.1 fl (80.0-96.0); PLATELET COUNT, AUTOMATED 294 10^3/uL (150-450); RED BLOOD COUNT 3.86 10^6/uL (4.00-5.40); WHITE BLOOD COUNT 8.9 10^3/uL (4.0-10.0)
[2020-02-01 09:34] LABS: INR 1.01; PROTHROMBIN TIME 13.5 SECONDS (12.5-14.3)
[2020-02-01 09:45] LABS: ALBUMIN 2.8 GM/DL (3.2-5.2); BILIRUBIN,TOTAL 0.5 MG/DL (0.2-1.0); CALCIUM LEVEL 8.7 MG/DL (8.8-10.2); CREATININE FOR GFR 1.04 MG/DL (0.55-1.30); GLOMERULAR FILTRATION RATE 55.3 (>39); POTASSIUM SERUM 3.7 MEQ/L (3.5-5.1); TOTAL PROTEIN 6.5 GM/DL (6.4-8.2)
[2020-02-01] MEDS: methylPREDNISolone 40MG 1ML VIAL IV SCH ×2 (10:10→22:05)
[2020-02-01] MEDS ORDERED: POLYETHYLENE GLYCOL (MIRALAX) 238GM BOTTLE PO ONE (14:00)
--- NOTE | 2020-02-01 14:32 | IPNPDOC ---
Date Seen The patient was seen on 02/01/20. Progress Note SUBJECTIVE: One bowel movement this AM without clots, frequency has decreased. At home O2 requirement, walking well with PT/OT. Colonoscopy in the AM. Denies chest pain, n/v/d, increased SOB, fevers or chills. PHYSICAL EXAMINATION: Vitals: (see below) General: No acute distress, sitting up at side of bed, NAD HEENT: Moist mucous membranes., NC in place Neck: No JVD or lymphadenopathy Cardiac: RRR, No murmurs Pulm: Diminished breath sounds b/l with prolonged exp phase; mild exp wheezing. No rhonchi Abd: NT/ND + BS Skin: areas around orbits of eyes b/l appear slightly pinkish/purplish-since admission Ext: No edema or cyanosis LABORATORY DATA: See below. IMAGING: No new imaging ASSESSMENT/PLAN: Acute blood loss anemia 2/2 to GI bleed -S/p 2 units PRBC transfusion this admission -H/H , no blood BM today -NPO for colonoscopy 02/02/20 -Eliquis and antiplatelet have been held since admission -GI following (Dr. Ford). -PPI BID -CBC Q12hrs GI bleed, source unknown -Please see above COPD exacerbation -Mild exp wheezing baseline, on home amt O2. -C/w nebulizer ATC, PRN and methylprednisolone (careful with GI bleed). When taking PO again, transition from IV methylprednisolone to oral steroids -Supplemental O2 Tachycardia likely 2/2 to albuterol vs. GI bleed vs. uncontrolled atrial fib. -Resolved. Conjunctivitis bilaterally -Improving -C/w polymyxin B eye drops x 7 days, Refresh HTN -Better controlled with restarting home ACEi -Monitor closely H/o CABG - No chest pain, shortness of breath worsened - hold antiplatelets. DM -BS stable and around 90's -Not currently on ISS -F/u FS Q6hrs Chronic atrial fib -Controlled -C/w current medications -tele GERD -PPI BID DVT Px -SCD DISPOSITION: Currently inpatient. Plan is EGD 02/02/20. GI consulted and following. VS, I&O, 24H, Fishbone Vital Signs/I&O Vital Signs Date Time Temp Pulse Resp B/P (MAP) Pulse Ox O2 Delivery O2 Flow Rate FiO2 02/01/20 12:00 99.0 93 18 92 Nasal Cannula 2.0 I&O- Last 24 Hours up to 6 AM 02/01/20 06:00 Intake Total 1820 ml Output Total 2400 ml Balance -580 ml Laboratory Data 24H LABS Laboratory Tests 2 01/31/20 16:22: Nucleated Red Blood Cells % (auto) 0.0 01/31/20 23:08: Bedside Glucose (Misc Panel) 123H 02/01/20 01:14: Nucleated Red Blood Cells % (auto) 0.0 02/01/20 06:19: Bedside Glucose (Misc Panel) 166H 02/01/20 08:56: Nucleated Red Blood Cells % (auto) 0.0, Prothrombin Time 13.5, Prothromb Time International Ratio 1.01, Anion Gap 7L, Glomerular Filtration Rate 55.3, Calcium Level 8.7L, Total Bilirubin 0.5, Aspartate Amino Transf (AST/SGOT) 28, Alanine Aminotransferase (ALT/SGPT) 22, Alkaline Phosphatase 52, Total Protein 6.5, Albumin 2.8L, Albumin/Globulin Ratio 0.8L 02/01/20 11:23: Bedside Glucose (Misc Panel) 93 CBC/BMP Laboratory Tests 01/31/20 16:22 02/01/20 01:14 02/01/20 08:56 Microbiology Microbiology 01/28/20 Blood Culture - Preliminary, Resulted No Growth after 72 hours. All specime... 01/28/20 Blood Culture - Preliminary, Resulted No Growth after 72 hours. All specime... Current Medications Current Medications Medications (Trade) Dose Ordered Sig/Anish Route PRN Reason Start Time Stop Time Status Last Admin Dose Admin Acetaminophen (Tylenol Tab) 650 mg Q4HP PRN PO PAIN OR FEVER 01/30/20 14:30 01/31/20 22:24 Albuterol/ Ipratropium (Combivent Respimat 100-20mcg) 1 puff RQID INH 01/28/20 20:00 01/30/20 10:32 DC 01/30/20 07:37 Albuterol/ Ipratropium (Duoneb (Ipr 0.5mg/Alb 2.5mg)) 3 ml Q4HP PRN NEB SOB/WHEEZING 01/30/20 09:15 01/30/20 10:32 DC Amlodipine Besylate (Norvasc) 2.5 mg DAILY PO 01/30/20 09:00 02/01/20 08:05 Artificial Tears (Akwa Tears) 2 drop TID OU 01/30/20 09:00 02/01/20 08:12 Budesonide/ Formoterol Fumarate (Symbicort 160/ 4.5mcg) 2 puff BID INH 01/28/20 21:00 02/01/20 07:11 Home Med (Med Rec Complete!) ASDIRECTED XX 01/28/20 17:00 01/28/20 17:02 DC Levalbuterol HCl (Xopenex Neb) 1.25 mg Q2HP PRN NEB SHORTNESS OF BREATH 01/30/20 10:45 Levalbuterol HCl (Xopenex Neb) 1.25 mg Q4HP PRN NEB SHORTNESS OF BREATH 01/30/20 10:30 01/30/20 10:46 DC Levalbuterol HCl (Xopenex Neb) 1.25 mg RQ4H NEB 01/30/20 12:00 02/01/20 11:03 Methylprednisolone (SOLU medrol) 20 mg Q12H IV 01/29/20 11:00 02/01/20 10:10 Metoprolol Tartrate (Lopressor) 12.5 mg BID PO 01/30/20 09:00 02/01/20 08:05 Montelukast Sodium (Singulair) 10 mg QHS PO 01/28/20 21:00 01/31/20 22:18 Pantoprazole Sodium (Protonix) 40 mg BID IV 01/28/20 21:00 02/01/20 08:05 Polymyxin/ Trimethoprim Sulfate (Polytrim Ophth Drops) 1 drop 6XD OU 01/30/20 12:00 02/06/20 12:00 02/01/20 11:53 Ramipril (Altace) 10 mg QHS PO 01/31/20 21:00 01/31/20 22:17 Ramipril (Altace) 10 mg QPM PO 01/28/20 21:00 01/28/20 17:58 DC Sodium Chloride 1,000 ml @ 80 mls/hr [id number] IV 01/29/20 17:30 01/30/20 18:29 DC 01/30/20 06:44 Allergies Coded Allergies: Penicillins (Verified Allergy, Unknown, 09/13/18) aspirin (Verified Allergy, Unknown, 09/13/18) ceftriaxone (Verified Allergy, Unknown, 09/13/18) Izabel Dillard MD Feb 01, 2020 14:32
[2020-02-01 16:49] LABS: HEMATOCRIT 37.2 % (36.0-47.0); HEMOGLOBIN 11.4 g/dl (12.0-15.5); MEAN CORPUSCULAR HEMOGLOBIN 26.8 pg (27.0-33.0); MEAN CORPUSCULAR HGB CONC 30.6 g/dl (32.0-36.5); MEAN CORPUSCULAR VOLUME 87.3 fl (80.0-96.0); PLATELET COUNT, AUTOMATED 295 10^3/uL (150-450); RED BLOOD COUNT 4.26 10^6/uL (4.00-5.40)
[2020-02-01] MEDS: ACETAMINOPHEN TAB 650MG DOSE (2X325MG) PO PRN (20:41)
[2020-02-01] MEDS: MONTELUKAST 10 MG TAB PO SCH (20:42)
[2020-02-01] MEDS: ramipriL 5 MG CAP PO SCH (20:42)
[2020-02-02] VITALS (7 sets, daily range): BP systolic 138–170; BP diastolic 64–90
[2020-02-02] MEDS: LEVALBUTEROL 1.25 MG/0.5 ML CONCENTRATE NEB NEB SCH ×5 (04:00→19:31)
[2020-02-02] MEDS: LEVALBUTEROL 1.25 MG/0.5 ML CONCENTRATE NEB NEB PRN ×2 (04:38→17:34)
[2020-02-02] MEDS ORDERED: POLYETHYLENE GLYCOL (MIRALAX) 238GM BOTTLE PO ONE (05:00)
[2020-02-02] MEDS: POLYTRIM OPTH DROPS 10ML OU SCH ×6 (05:13→20:22)
[2020-02-02 05:35] LABS: INR 0.97; PROTHROMBIN TIME 13.1 SECONDS (12.5-14.3)
[2020-02-02 05:56] LABS: ALBUMIN 2.9 GM/DL (3.2-5.2); ALT/SGPT 26 U/L (12-78); BILIRUBIN,TOTAL 0.5 MG/DL (0.2-1.0); BLOOD UREA NITROGEN 9 MG/DL (7-18); CALCIUM LEVEL 8.8 MG/DL (8.8-10.2); CARBON DIOXIDE LEVEL 35 MEQ/L (21-32); CHLORIDE LEVEL 102 MEQ/L (98-107); CREATININE FOR GFR 0.89 MG/DL (0.55-1.30); GLOMERULAR FILTRATION RATE > 60.0 (>39); GLUCOSE, FASTING 159 MG/DL (70-100); POTASSIUM SERUM 4.1 MEQ/L (3.5-5.1); SODIUM LEVEL 141 MEQ/L (136-145); TOTAL PROTEIN 6.8 GM/DL (6.4-8.2)
[2020-02-02] MEDS: SYMBICORT 160/4.5MCG INHALER 6GM INH SCH ×2 (07:10→19:31)
[2020-02-02] MEDS: PANTOPRAZOLE 40MG VIAL (C9113 PER 1) IV SCH ×2 (08:20→20:21)
[2020-02-02] MEDS: METOPROLOL TART 12.5 MG PER 1/2 TAB PO SCH ×2 (08:21→20:21)
[2020-02-02] MEDS: POLYVINYL ALCOHOL OPHTH SOLN 15 ML(LIQUITEARS) OU SCH ×3 (08:21→20:22)
[2020-02-02] MEDS ORDERED: SLF 3 ML SYR IV PRN (11:00)
[2020-02-02] MEDS ORDERED: D5W/0.9% SODIUM CHLORIDE 1,000 ML IV SCH (12:15)
--- NOTE | 2020-02-02 12:52 | IPNPDOC ---
Date Seen The patient was seen on 02/02/20. Progress Note SUBJECTIVE: No bloody bowel movements for >24 hours. NPO for EGD/colonoscopy today. Will d/w GI whether or not patient can be d/santiago after. BS slightly low, started gentle D5W. Denies chest pain, n/v/d, increased SOB, fevers or chills. PHYSICAL EXAMINATION: Vitals: (see below) General: No acute distress, sitting up at side of bed, NAD HEENT: Moist mucous membranes., NC in place Neck: No JVD or lymphadenopathy Cardiac: RRR, No murmurs Pulm: Diminished breath sounds b/l ; mild exp wheezing. No rhonchi Abd: NT/ND + BS Skin: areas around orbits of eyes b/l appear slightly pinkish/purplish- improving since admission Ext: No edema or cyanosis LABORATORY DATA: See below. IMAGING: No new imaging ASSESSMENT/PLAN: Acute blood loss anemia 2/2 to GI bleed -S/p 2 units PRBC transfusion this admission -H/H 11.437, no bloody BM for >24 hrs -NPO for EGD/colonoscopy 02/02/20 -Eliquis and antiplatelet have been held since admission -GI following (Dr. Ford). -PPI BID -CBC Q12hrs GI bleed, source unknown -Please see above COPD exacerbation -Mild exp wheezing baseline, on home amt O2. -C/w nebulizer ATC, PRN and PO prednisone -Supplemental O2 Conjunctivitis bilaterally -Improving -C/w polymyxin B eye drops x 7 days, Refresh HTN -Better controlled with restarting home ACEi -Monitor closely H/o CABG - No chest pain, shortness of breath worsened - hold antiplatelets, to discuss with GI when to restart DM -BS stable and around 90's -Not currently on ISS -F/u FS Q6hrs Chronic atrial fib -Controlled -C/w current medications -tele -Holding eliquis, will d/w GI as to when to restart GERD -PPI BID DVT Px -SCD DISPOSITION: Currently inpatient. GI following. PT/OT cleared patient, so plan is d/c home when medically cleared. VS, I&O, 24H, Fishbone Vital Signs/I&O Vital Signs Date Time Temp Pulse Resp B/P (MAP) Pulse Ox O2 Delivery O2 Flow Rate FiO2 02/02/20 08:21 86 160/74 02/02/20 08:20 2.0 02/02/20 08:00 98.5 20 93 Nasal Cannula I&O- Last 24 Hours up to 6 AM 02/02/20 06:00 Intake Total 2120 ml Output Total 3050 ml Balance -930 ml Laboratory Data 24H LABS Laboratory Tests 2 02/01/20 14:49: Coronavirus (COVID-19)(PCR) NEGATIVE 02/01/20 16:28: Nucleated Red Blood Cells % (auto) 0.0 02/01/20 19:13: Bedside Glucose (Misc Panel) 211H 02/02/20 05:03: Prothrombin Time 13.1, Prothromb Time International Ratio 0.97, Anion Gap 4L, Glomerular Filtration Rate > 60.0, Calcium Level 8.8, Total Bilirubin 0.5, As partate Amino Transf (AST/SGOT) 26, Alanine Aminotransferase (ALT/SGPT) 26, Alkaline Phosphatase 57, Total Protein 6.8, Albumin 2.9L, Albumin/Globulin Ratio 0.7L 02/02/20 11:46: Bedside Glucose (Misc Panel) 81L CBC/BMP Laboratory Tests 02/01/20 16:28 02/02/20 05:03 Microbiology Microbiology 01/28/20 Blood Culture - Preliminary, Resulted No Growth after 72 hours. All specime... 01/28/20 Blood Culture - Preliminary, Resulted No Growth after 72 hours. All specime... Current Medications Current Medications Medications (Trade) Dose Ordered Sig/Anish Route PRN Reason Start Time Stop Time Status Last Admin Dose Admin Acetaminophen (Tylenol Tab) 650 mg Q4HP PRN PO PAIN OR FEVER 01/30/20 14:30 02/01/20 20:41 Albuterol/ Ipratropium (Combivent Respimat 100-20mcg) 1 puff RQID INH 01/28/20 20:00 01/30/20 10:32 DC 01/30/20 07:37 Albuterol/ Ipratropium (Duoneb (Ipr 0.5mg/Alb 2.5mg)) 3 ml Q4HP PRN NEB SOB/WHEEZING 01/30/20 09:15 01/30/20 10:32 DC Amlodipine Besylate (Norvasc) 2.5 mg DAILY PO 01/30/20 09:00 02/02/20 08:21 Artificial Tears (Akwa Tears) 2 drop TID OU 01/30/20 09:00 02/02/20 08:21 Budesonide/ Formoterol Fumarate (Symbicort 160/ 4.5mcg) 2 puff BID INH 01/28/20 21:00 02/02/20 07:10 Dextrose/Sodium Chloride 1,000 ml @ 75 mls/hr [id number] IV 02/02/20 12:15 02/02/20 12:30 Home Med (Med Rec Complete!) ASDIRECTED XX 01/28/20 17:00 01/28/20 17:02 DC Levalbuterol HCl (Xopenex Neb) 1.25 mg Q2HP PRN NEB SHORTNESS OF BREATH 01/30/20 10:45 02/02/20 04:38 Levalbuterol HCl (Xopenex Neb) 1.25 mg Q4HP PRN NEB SHORTNESS OF BREATH 01/30/20 10:30 01/30/20 10:46 DC Levalbuterol HCl (Xopenex Neb) 1.25 mg RQ4H NEB 01/30/20 12:00 02/02/20 11:08 Methylprednisolone (SOLU medrol) 20 mg Q12H IV 01/29/20 11:00 02/02/20 08:43 DC 02/01/20 22:05 Metoprolol Tartrate (Lopressor) 12.5 mg BID PO 01/30/20 09:00 02/02/20 08:21 Montelukast Sodium (Singulair) 10 mg QHS PO 01/28/20 21:00 02/01/20 20:42 Pantoprazole Sodium (Protonix) 40 mg BID IV 01/28/20 21:00 02/02/20 08:20 Polymyxin/ Trimethoprim Sulfate (Polytrim Ophth Drops) 1 drop 6XD OU 01/30/20 12:00 02/06/20 12:00 02/02/20 12:30 Prednisone (Deltasone) 30 mg DAILY PO 02/02/20 09:00 Ramipril (Altace) 10 mg QHS PO 01/31/20 21:00 02/01/20 20:42 Ramipril (Altace) 10 mg QPM PO 01/28/20 21:00 01/28/20 17:58 DC Sodium Chloride 1,000 ml @ 80 mls/hr [id number] IV 01/29/20 17:30 01/30/20 18:29 DC 01/30/20 06:44 Sodium Chloride (Saline Lock Flush) 2 ml ASDIRECTED PRN IV SEE LABEL COMMENTS 02/02/20 11:00 Sodium Chloride (Saline Lock Flush) 2 ml SLF IV 02/02/20 14:00 Allergies Coded Allergies: Penicillins (Verified Allergy, Unknown, 09/13/18) aspirin (Verified Allergy, Unknown, 09/13/18) ceftriaxone (Verified Allergy, Unknown, 09/13/18) Izabel Dillard MD Feb 02, 2020 12:52
[2020-02-02] MEDS: SLF 3 ML SYR IV SCH ×2 (14:00→22:00)
[2020-02-02] MEDS ORDERED: propofoL 200 MG/20 ML VIAL As Ordered ONE (15:37)
[2020-02-02] MEDS ORDERED: LIDOCAINE 2% 100MG/5ML SDV (FOR ANES.) As Ordered ONE (15:37)
--- NOTE | 2020-02-02 16:47 | ROOR ---
Patient Name: Chelsi Monroe Procedure Date: 02/02/2020 3:44 PM Date of : 1945 Age: 74 Room: Main OR Gender: Female Note Status: Finalized Procedure: Upper GI endoscopy Indications: Acute post hemorrhagic anemia, Hematochezia, Melena Providers: Josh FORD MD Referring MD: 2. Inpatient 2. Inpatient, MARUY ARRIETA NP Requesting Provider: Medicines: Monitored Anesthesia Care Complications: No immediate complications. Procedure: Pre-Anesthesia Assessment: - The heart rate, respiratory rate, oxygen saturations, blood pressure, adequacy of pulmonary ventilation, and response to care were monitored throughout the procedure. The Endoscope was introduced through the mouth, and advanced to the third part of duodenum. The upper GI endoscopy was accomplished without difficulty. The patient tolerated the procedure well. Findings: The esophagus was normal. The stomach was normal. The examined duodenum was normal. Impression: - Normal esophagus. - Normal stomach. - Normal examined duodenum. - No specimens collected. Recommendation: - Perform a colonoscopy today. Josh Ford MD Josh FORD MD 02/02/2020 4:47:03 PM Electronically signed by Josh FORD MD Number of Addenda: 0 Note Initiated On: 02/02/2020 3:44 PM Estimated Blood Loss: Estimated blood loss: none.
--- NOTE | 2020-02-02 16:53 | ROOR ---
Patient Name: Cehlsi Monroe Procedure Date: 02/02/2020 4:21 PM Date of : 1945 Age: 74 Room: Main OR Gender: Female Note Status: Finalized Procedure: Colonoscopy Indications: Hematochezia, Melena Providers: Josh FORD MD Referring MD: 2. Inpatient 2. Inpatient, MAURY ARRIETA NP Requesting Provider: Medicines: Monitored Anesthesia Care Complications: No immediate complications. Procedure: Pre-Anesthesia Assessment: - The heart rate, respiratory rate, oxygen saturations, blood pressure, adequacy of pulmonary ventilation, and response to care were monitored throughout the procedure. The Colonoscope was introduced through the anus and advanced to 10 cm into the ileum. The colonoscopy was performed without difficulty. The patient tolerated the procedure well. The quality of the bowel preparation was good. Findings: Non-thrombosed external and internal hemorrhoids were found during retroflexion. The hemorrhoids were large. A few medium-mouthed diverticula were found in the sigmoid colon. The exam was otherwise normal throughout the examined colon. The terminal ileum appeared normal. Impression: - Moderate to large external and internal hemorrhoids. - Mild diverticulosis in the sigmoid colon. - The colon is otherwise normal. - The examined portion of the ileum was normal. - No specimens collected. (- Bleeding source likely from hemorrhoids, or mild diverticular bleeding--this has resolved. Recommendation: - Resume regular diet. - Return to primary care physician as previously scheduled. - Does not need routine follow up with me. - [facility] same day. Josh Ford MD Josh FORD MD 02/02/2020 4:53:06 PM Electronically signed by Josh FORD MD Number of Addenda: 0 Note Initiated On: 02/02/2020 4:21 PM Estimated Blood Loss: Estimated blood loss: none.
[2020-02-02] MEDS: LABETALOL 100MG/20ML VIAL IV PRN ×2 (17:00→17:05)
[2020-02-02] MEDS ORDERED: LABETALOL 100MG/20ML VIAL As Ordered ONE (17:04)
[2020-02-02] MEDS ORDERED: fentaNYL 100 MCG/2 ML INJECTION (J3010) IV PRN (17:30)
[2020-02-02] MEDS: predniSONE 10 MG TAB PO SCH (18:00)
[2020-02-02] MEDS: MONTELUKAST 10 MG TAB PO SCH (20:21)
[2020-02-02] MEDS: ramipriL 5 MG CAP PO SCH (20:21)
[2020-02-02] MEDS: ACETAMINOPHEN TAB 650MG DOSE (2X325MG) PO PRN (20:27)
[2020-02-03] VITALS: BP 164/79
[2020-02-03] MEDS: LEVALBUTEROL 1.25 MG/0.5 ML CONCENTRATE NEB NEB SCH ×4 (00:04→11:19)
[2020-02-03 04:00] VITALS: BP 134/63
[2020-02-03 04:49] LABS: HEMATOCRIT 31.7 % (36.0-47.0); MEAN CORPUSCULAR HEMOGLOBIN 26.3 pg (27.0-33.0); MEAN CORPUSCULAR HGB CONC 29.7 g/dl (32.0-36.5); MEAN CORPUSCULAR VOLUME 88.8 fl (80.0-96.0); PLATELET COUNT, AUTOMATED 219 10^3/uL (150-450); RED BLOOD COUNT 3.57 10^6/uL (4.00-5.40); WHITE BLOOD COUNT 9.3 10^3/uL (4.0-10.0)
[2020-02-03 04:58] LABS: HEMOGLOBIN 9.4 g/dl (12.0-15.5)
[2020-02-03 05:07] LABS: INR 1.02; PROTHROMBIN TIME 13.6 SECONDS (12.5-14.3)
[2020-02-03 05:14] LABS: BLOOD UREA NITROGEN 16 MG/DL (7-18); CALCIUM LEVEL 8.4 MG/DL (8.8-10.2); CARBON DIOXIDE LEVEL 35 MEQ/L (21-32); CHLORIDE LEVEL 102 MEQ/L (98-107); CREATININE FOR GFR 0.81 MG/DL (0.55-1.30); GLOMERULAR FILTRATION RATE > 60.0 (>39); GLUCOSE, FASTING 200 MG/DL (70-100); POTASSIUM SERUM 3.6 MEQ/L (3.5-5.1); SODIUM LEVEL 139 MEQ/L (136-145)
[2020-02-03] MEDS: SLF 3 ML SYR IV SCH (06:47)
[2020-02-03] MEDS: POLYTRIM OPTH DROPS 10ML OU SCH ×2 (06:47→10:00)
[2020-02-03] MEDS: SYMBICORT 160/4.5MCG INHALER 6GM INH SCH (07:54)
[2020-02-03 08:00] VITALS: BP 142/67
[2020-02-03] MEDS: POLYVINYL ALCOHOL OPHTH SOLN 15 ML(LIQUITEARS) OU SCH (09:59)
[2020-02-03] MEDS: PANTOPRAZOLE 40MG VIAL (C9113 PER 1) IV SCH (09:59)
[2020-02-03] MEDS: predniSONE 10 MG TAB PO SCH (10:00)
[2020-02-03 10:01] VITALS: BP 142/67
[2020-02-03] MEDS: METOPROLOL TART 12.5 MG PER 1/2 TAB PO SCH (10:01)
[2020-02-03] MEDS ORDERED: COLA100C5 PO (10:13)
[2020-02-03] MEDS ORDERED: POLYOPD OP (10:22)
--- NOTE | 2020-02-03 16:01 | DS.PDOC ---
Discharge Summary General Date of Admission Jan 28, 2020 at 17:28 Date of Discharge 02/03/20 Attending Physician: Izabel Dillard MD Discharge Summary HISTORY OF PRESENT ILLNESS: This is a 74 y/o F with PMHx COPD on 3L home O2, hypercapnia, DM, HTN, HLD, CAD s/p CABG, AF on eliquis on presents c/o SOB and BRBPR. Pt states SOB started 2 weeks ago with exertion. She has baseline COPD on 3L O2. Has non productive cough, and exertional dyspnea. No fevers/chills. Has been increasing here O2 with exertional now to 5L. Has no SOB while at rest. No CP/Palpitations. No N/V/abd pain. Pt notes that today, she had BRBPR x4. Mostly red, however she notes her stools are typically dark from iron supplements. Troponin negative in the ED. No acute ST changes on EKG. Patient admitted for further workup of GI bleed and acute COPD exacerbation, acute on chronic respiratory failure. HOSPITAL COURSE: Patient continued to have BRBPR with clots. On 01/28/20 patient was transfused 2 units PRBC with H/H improving. Eliquis and Plavix had been held since admission;however, GI could not do colonoscopy until 02/02/20. Patient was continued on low dose methylprednisolone and neb ATC, PRN. Nebs were changed to xopenex due to incr tachycardia. Patient complained of increased eye itching, dry eyes and abx ointment and refresh were added-improving issue. On 02/02/20 patient was taken for colonoscopy/ECG. Internal/external hemorrhoids seen. Per GI, likely bleeding hemorrhoids vs. diverticular bleed as cause of bleed. Patient stable after procedure. On 02/03/20, patient had not had rectal bleeding for several days. She denied chest pain, SOB, n/v/d, fevers, chills, lightheadedness. She was cleared by PT/OT. She was discharged home to f/u with PCP after weekend. Advised to restart clopidogrel today, eliquis on 02/05/20. REVIEW OF SYSTEMS: Neg except for what is mentioned above. PAST MEDICAL HISTORY: Chronic hypercapnic respiratory failure 2/2 to COPD on 3L NC home O2 DM HTN HLD CAD s/p CABG AF on eliquis PAST SURGICAL HISTORY: b/l cataracts tubal ligation appendectomy CABG SOCIAL HISTORY:45 pack year, occasional alcohol. FAMILY HISTORY:Non contributor ALLERGIES: Please see below. DISCHARGE MEDICATIONS: Please see below. PHYSICAL EXAMINATION: Vitals: Please see below General: No acute distress, sitting up at side of bed, NAD HEENT: Moist mucous membranes., NC in place Neck: No JVD or lymphadenopathy Cardiac: RRR, No murmurs Pulm: Diminished breath sounds b/l ; mild exp wheezing. No rhonchi Abd: NT/ND + BS Skin: areas around orbits of eyes b/l appear slightly pinkish- improved Ext: No edema or cyanosis LABORATORY DATA: See below. IMAGING: COLONOSCOPY 02/02/20: - Moderate to large external and internal hemorrhoids. - Mild diverticulosis in the sigmoid colon. - The colon is otherwise normal. - The examined portion of the ileum was normal. - No specimens collected. - Bleeding source likely from hemorrhoids, or mild diverticular bleeding-this has resolved. EGD 02/02/20: Unremarkable ASSESSMENT/PLAN: Acute blood loss anemia 2/2 to bleeding hemorrhoids vs. diverticular bleed- resolved. -S/p 2 units PRBC transfusion this admission -H/H stable -EGD/colonoscopy above -Eliquis to be resumed on 02/05/20, can resume clopidogrel today. She is to be aware of new bleeding and, if this occurs, let a medical professional know immediately -F/u with PCP within 1-2 weeks after discharge. -Resume cardiac diet GI bleed likely 2/2 to bleeding hemorrhoid vs. diverticular bleed- resolve. -Please see above COPD exacerbation- resolved -Mild exp wheezing baseline, on home amt O2. -D/c prednisone -Supplemental O2 Conjunctivitis bilaterally- improved -Treated with polymyxin B eye drops x 7 days, Refresh HTN -Stable. -C/w home meds. H/o CABG - No chest pain, shortness of breath worsened - Restarting antiplatelet, c/w other cardiac meds DM -BS stable -C/w home treatment regimen Chronic atrial fib -Controlled -Resume eliquis 02/05/20 DISPOSITION: Discharge home today. F/u with PCP, specific instructions when to resume AC given. TIME SPENT ON DISCHARGE: Greater than 30 minutes. Vital Signs/I&Os Vital Signs Date Time Temp Pulse Resp B/P (MAP) Pulse Ox O2 Delivery O2 Flow Rate FiO2 02/03/20 10:01 74 02/03/20 10:01 142/67 02/03/20 08:00 97.3 17 97 Nasal Cannula 2.0 I&O- Last 24 Hours up to 6 AM 02/03/20 06:00 Intake Total 1420 ml Output Total 1250 ml Balance 170 ml Laboratory Data Labs 24H Laboratory Tests 2 02/02/20 17:45: Bedside Glucose (Misc Panel) 83 02/03/20 00:10: Bedside Glucose (Misc Panel) 267H 02/03/20 04:24: Nucleated Red Blood Cells % (auto) 0.0, Prothrombin Time 13.6, Prothromb Time International Ratio 1.02, Anion Gap 2L, Glomerular Filtration Rate > 60.0, Calcium Level 8.4L CBC/BMP Laboratory Tests 02/03/20 04:24 FSBS Laboratory Tests Test 02/02/20 17:45 02/03/20 00:10 Range/Units Bedside Glucose (Misc Panel) 83 267 83-110 MG/DL Microbiology Microbiology 01/28/20 Blood Culture - Final, Complete NO GROWTH AFTER 5 DAYS 01/28/20 Blood Culture - Final, Complete NO GROWTH AFTER 5 DAYS Discharge Medications Scheduled Amlodipine Besylate (Amlodipine Besylate) 2.5 Mg Tablet, 2.5 MG PO DAILY, (Reported) Apixaban (Eliquis) 5 Mg Tablet, 5 MG PO BID, (Reported) Atorvastatin Calcium (Atorvastatin Calcium) 80 Mg Tablet, 40 MG PO Q2D, (Reported) Budesonide/Formoterol (Symbicort 160-4.5 Mcg Inhaler) 6 Gm Hfa.aer.ad, 2 PUFF INH BID, (Reported) Clopidogrel Bisulfate (Plavix) 75 Mg Tablet, 75 MG PO DAILY, (Reported) Docusate Sodium (Colace) 100 Mg Capsule, 100 MG PO BID Furosemide (Furosemide) 20 Mg Tablet, 20 MG PO DAILY, (Reported) Ipratropium/Albuterol Sulfate (Combivent Respimat 20-100 Mcg) 4 Gm Mist.inhal, 1 PUFF INH QID, (Reported) Metoprolol Tartrate (Metoprolol Tartrate) 25 Mg Tablet, 12.5 MG PO BID, (Reported) Montelukast Sodium (Montelukast Sodium) 10 Mg Tablet, 10 MG PO QHS, (Reported) Polyvinyl Alcohol (Artificial Tears) 15 Ml Drops, 1 DROP OP QID Ramipril (Ramipril) 10 Mg Capsule, 10 MG PO QPM, (Reported) Sitagliptin Phos/Metformin HCl (Janumet Xr 100-1,000 mg Tablet) 1 Each Tbmp.24hr, 1 TAB PO QPM, (Reported) Umeclidinium [place] (Incruse Ellipta) 62.5 Mcg Blst.w.dev, 1 PUFF INH QPM, (Reported) Allergies Coded Allergies: Penicillins (Verified Allergy, Unknown, 09/13/18) aspirin (Verified Allergy, Unknown, 09/13/18) ceftriaxone (Verified Allergy, Unknown, 09/13/18) Izabel Dillard MD Feb 03, 2020 16:01
--- NOTE | 2020-02-05 11:06 | REP ---
GASTROINTESTINAL BLEEDING NUCLEAR SCINTIGRAPHY HISTORY: Gastrointestinal (GI) bleed. TECHNIQUE: 24.0 mCi of Technetium-99m RBC Ultratag is administered. Anterior flow and sequential 5 minute abdominal and pelvis images are acquired. FINDINGS: Anterior flow study is normal. Sequential 5 minute images demonstrate normal hepatic, splenic, and blood pool vascular uptake. Expected uptake is seen in the urinary bladder. No evidence of localized abdominal or pelvis uptake is seen to suggest localizable GI bleeding source. IMPRESSION: Negative gastrointestinal (GI) bleed scan. No localized bleeding site seen. MTDD
== END 2020-02-03 12:13 | disposition home or self-care (01) | DRG 378 ==
LOC: M ED 13:40 → M ED INP 17:28 → ENRESERV 18:04 → M PCU 18:40
PROVIDERS: ADMIT Internal Medicine; ATTEND Internal Medicine
PROC: 30233N1 Transfusion of Nonautologous Red Blood Cells into Peripheral Vein, Percutaneous Approach (ICD-10-PCS; 2020-01-28)
PROC: 0DJD8ZZ Inspection of Lower Intestinal Tract, Via Natural or Artificial Opening Endoscopic (ICD-10-PCS; 2020-02-02)
PROC: 0DJ08ZZ Inspection of Upper Intestinal Tract, Via Natural or Artificial Opening Endoscopic (ICD-10-PCS; principal; 2020-02-02 07:51)
DX: K57.31 Diverticulosis of large intestine without perforation or abscess with bleeding (principal); D62 Acute posthemorrhagic anemia; J44.1 Chronic obstructive pulmonary disease with (acute) exacerbation; I48.20 Chronic atrial fibrillation, unspecified; J96.12 Chronic respiratory failure with hypercapnia; E11.9 Type 2 diabetes mellitus without complications; E78.5 Hyperlipidemia, unspecified; I25.10 Atherosclerotic heart disease of native coronary artery without angina pectoris; H10.9 Unspecified conjunctivitis; K64.8 Other hemorrhoids; K64.4 Residual hemorrhoidal skin tags; K21.9 Gastro-esophageal reflux disease without esophagitis; Z95.1 Presence of aortocoronary bypass graft; Z98.41 Cataract extraction status, right eye; Z98.42 Cataract extraction status, left eye; Z90.49 Acquired absence of other specified parts of digestive tract; Z79.01 Long term (current) use of anticoagulants; Z88.6 Allergy status to analgesic agent; Z79.899 Other long term (current) drug therapy; Z88.0 Allergy status to penicillin; Z99.81 Dependence on supplemental oxygen; Z88.1 Allergy status to other antibiotic agents

== ENCOUNTER → 2020-06-19 | Outpatient (CLI) | payer MEDICARE ==
[~2020-06-19] MED LIST changes: +AMLO2.5T3 PO; +ATOR80TA59 PO; +COLA100C5 PO; +ELIQ5TAB PO; +FURO20TA2 PO; +INCR1INH INH; +METO25TA4 PO; +MONT10TA10 PO; +PLAV1TAB2 PO; +POLYOPD OP; +RAMI1CAP26 PO
[2020-06-19 11:58] LABS: BASO % 0.2 % (0.0-1.0); EOS # 0.3 10^3/uL (0.0-0.5); HEMATOCRIT 30.7 % (36.0-47.0); HEMOGLOBIN 8.4 g/dl (12.0-15.5); LYMPH # 1.4 10^3/uL (1.5-5.0); LYMPH % 8.9 % (24.0-44.0); MEAN CORPUSCULAR HEMOGLOBIN 21.2 pg (27.0-33.0); MEAN CORPUSCULAR HGB CONC 27.4 g/dl (32.0-36.5); MEAN CORPUSCULAR VOLUME 77.3 fl (80.0-96.0); MONO % 6.3 % (2.0-8.0); NEUTROPHILS # 13.1 10^3/uL (1.5-8.5); NEUTROPHILS % 80.9 % (36.0-66.0); PLATELET COUNT, AUTOMATED 431 10^3/uL (150-450); RED BLOOD COUNT 3.97 10^6/uL (4.00-5.40); WHITE BLOOD COUNT 16.2 10^3/uL (4.0-10.0)
[2020-06-19 12:26] LABS: HEMOGLOBIN A1c 5.9 %
[2020-06-19 12:31] LABS: ALBUMIN 2.1 GM/DL (3.2-5.2); ALT/SGPT 11 U/L (12-78); BILIRUBIN,TOTAL 0.2 MG/DL (0.2-1.0); BLOOD UREA NITROGEN 16 MG/DL (7-18); CALCIUM LEVEL 9.3 MG/DL (8.8-10.2); CARBON DIOXIDE LEVEL 37 MEQ/L (21-32); CHLORIDE LEVEL 94 MEQ/L (98-107); CHOLESTEROL LEVEL 90 MG/DL (<200); CHOLESTEROL RISK RATIO 1.875 (<5); CREATININE FOR GFR 0.89 MG/DL (0.55-1.30); FERRITIN 238 NG/ML (8-252); GLOMERULAR FILTRATION RATE > 60.0 (>39); GLUCOSE, FASTING 70 MG/DL (70-100); HDL CHOLESTEROL 48 MG/DL (>40); IRON (FE) 11 UG/DL (50-170); LDL CHOLESTEROL 21 MG/DL (<100); MAGNESIUM LEVEL 1.6 MG/DL (1.8-2.4); NON-HDL-C 42 MG/DL; PERCENT SATURATION 5.6 % (13.2-45.0); SODIUM LEVEL 135 MEQ/L (136-145); TOTAL 25(OH) VITAMIN D 88.3 NG/ML (30.0-100.0); TOTAL IRON BINDING CAPACITY 197 UG/DL (250-450); TOTAL PROTEIN 7.1 GM/DL (6.4-8.2); TRIGLYCERIDES LEVEL 106 MG/DL (<150)
== END ==
LOC: M LAB 11:09
PROVIDERS: ATTEND Nurse Practitioner Adult Health
DX: D64.9 Anemia, unspecified (principal); E78.00 Pure hypercholesterolemia, unspecified; E11.65 Type 2 diabetes mellitus with hyperglycemia; E55.9 Vitamin D deficiency, unspecified; R11.2 Nausea with vomiting, unspecified; E78.1 Pure hyperglyceridemia; I25.119 Atherosclerotic heart disease of native coronary artery with unspecified angina pectoris; Z79.899 Other long term (current) drug therapy; Z79.01 Long term (current) use of anticoagulants

== ENCOUNTER → 2020-09-04 | Outpatient (CLI) | payer MEDICARE | LOC: M WUC 11:48 | PROVIDERS: ATTEND Nurse Practitioner Family | DX: E11.65 Type 2 diabetes mellitus with hyperglycemia (principal); E87.5 Hyperkalemia ==

== ENCOUNTER 2020-10-02 12:36 | Emergency (ER) | payer MEDICARE ==
[~2020-10-02] VITALS: Ht 160 cm; Wt 49.5 kg
[2020-10-02] MEDS ORDERED: traMADol 50 MG TAB PO ONE (16:00)
[2020-10-02] MEDS ORDERED: ACETAMINOPHEN TAB 650MG DOSE (2X325MG) PO ONE (16:00)
--- NOTE | 2020-10-02 16:35 | REP ---
INDICATION: low back pain r/o compression fx. COMPARISON: None. TECHNIQUE: Five views FINDINGS: There is bridging marginal osteophytosis seen bilaterally at T12-L1 and on the right at L1-2 through L3-4. Bridging marginal osteophytosis is seen on the left at L4-5. Vertebral body height and alignment is within normal limits. There is anterior lipping also seen at every level. There is moderate to severe L4-5 disc space narrowing with moderate disc space narrowing at all other levels. Degenerative facet joint changes are seen at L4-5 and L5-S1 bilaterally. The pedicles are intact bilaterally. There is no evidence of spondylolysis or spondylolisthesis. Multiple laminated calcifications are seen in the right mid abdominal region. Aortic calcifications are noted. IMPRESSION: 1. Chronic spinal degenerative changes as described above. 2. Cholelithiasis. 3. Calcific atheromatous plaque formation seen in the abdominal aorta and common iliac arteries. <Electronically signed by Ray Templeton > 10/02/20 [id number]
--- NOTE | 2020-10-02 16:36 | REP ---
INDICATION: low back pain r/o compression fx. COMPARISON: None. TECHNIQUE: Single AP pelvis. The proximal right femur laterally is excluded from the radiograph. FINDINGS: There is moderate bilateral asymmetric hip joint space narrowing. There is no acute fracture, dislocation, or subluxation. Degenerative changes seen involving the sacroiliac joints. IMPRESSION: Chronic changes as described above. Please refer to the lumbar spine report for additional findings also seen on this exam. <Electronically signed by Ray Templeton > 10/02/20 [id number]
[2020-10-02 16:44] LABS: BASO % 0.2 % (0.0-1.0); EOS # 0.3 10^3/uL (0.0-0.5); EOS % 1.9 % (0.0-3.0); HEMATOCRIT 31.7 % (36.0-47.0); HEMOGLOBIN 8.8 g/dl (12.0-15.5); LYMPH # 1.7 10^3/uL (1.5-5.0); LYMPH % 13.3 % (24.0-44.0); MEAN CORPUSCULAR HEMOGLOBIN 21.3 pg (27.0-33.0); MEAN CORPUSCULAR HGB CONC 27.8 g/dl (32.0-36.5); MEAN CORPUSCULAR VOLUME 76.6 fl (80.0-96.0); MONO # 0.6 10^3/uL (0.0-0.8); MONO % 4.6 % (2.0-8.0); NEUTROPHILS # 10.3 10^3/uL (1.5-8.5); NEUTROPHILS % 79.6 % (36.0-66.0); PLATELET COUNT, AUTOMATED 443 10^3/uL (150-450); RED BLOOD COUNT 4.14 10^6/uL (4.00-5.40); WHITE BLOOD COUNT 12.9 10^3/uL (4.0-10.0)
[2020-10-02 17:38] VITALS: BP 148/92
[2020-10-02] MEDS ORDERED: ULTR50TA8 PO (17:38)
--- NOTE | 2020-10-02 18:56 | ED PDOC ---
Post-Departure Follow-Up ls spine film faxed to [facility] for Lillian Webb MD Oct 02, 2020 18:56
== END 2020-10-02 18:32 | disposition home or self-care (01) ==
LOC: M ED 12:36
DX: M51.37 Other intervertebral disc degeneration, lumbosacral region (principal); D50.9 Iron deficiency anemia, unspecified; L89.150 Pressure ulcer of sacral region, unstageable; I10 Essential (primary) hypertension; J44.9 Chronic obstructive pulmonary disease, unspecified; E11.9 Type 2 diabetes mellitus without complications; J45.909 Unspecified asthma, uncomplicated; E78.00 Pure hypercholesterolemia, unspecified; K76.89 Other specified diseases of liver; Z79.899 Other long term (current) drug therapy; Z79.01 Long term (current) use of anticoagulants

== ENCOUNTER 2021-02-17 11:09 | Inpatient (IN) | payer MEDICARE ==
[~2021-02-17] VITALS: Ht 160 cm; Wt 48.3 kg
[~2021-02-17 11:09] MED LIST changes: -MONT10TA10 PO; +MONT10TA97 PO; +ULTR50TA8 PO
[2021-02-17] MEDS ORDERED: CLOP75TA2 PO (11:17)
[2021-02-17] MEDS ORDERED: NS 1,000 ML IV SCH (11:30)
[2021-02-17 11:54] LABS: VENOUS BASE EXCESS 4.2 (-2.0-2.0); VENOUS PARTIAL PRESSURE CO2 59.5 mmHg (38.0-50.0); VENOUS PARTIAL PRESSURE O2 51.3 mmHg (30.0-50.0); VENOUS PH 7.335 UNITS (7.330-7.430); VENOUS TOTAL CO2 32.8 MEQ/L (24.0-28.0)
[2021-02-17 11:59] LABS: BASO # 0.1 10^3/uL (0.0-0.2); BASO % 0.2 % (0.0-1.0); HEMATOCRIT 28.6 % (36.0-47.0); LYMPH # 1.9 10^3/uL (1.5-5.0); LYMPH % 5.3 % (24.0-44.0); MEAN CORPUSCULAR HEMOGLOBIN 20.4 pg (27.0-33.0); MONO # 1.4 10^3/uL (0.0-0.8); MONO % 3.7 % (2.0-8.0); NEUTROPHILS % 88.6 % (36.0-66.0); PLATELET COUNT, AUTOMATED 589 10^3/uL (150-450); RED BLOOD COUNT 3.92 10^6/uL (4.00-5.40)
[2021-02-17] MEDS: COMBIVENT RESPIMAT 100-20MCG INHALER 4GM INH SCH ×5 (12:00→20:00)
[2021-02-17 12:08] LABS: WHITE BLOOD COUNT 36.1 10^3/uL (4.0-10.0)
[2021-02-17] MEDS ORDERED: ONDANSETRON 4MG/2ML VIAL IV ONE (12:10)
[2021-02-17 12:39] LABS: ALBUMIN 1.4 GM/DL (3.2-5.2); ALT/SGPT 14 U/L (12-78); BILIRUBIN,DIRECT 0.2 MG/DL (0.0-0.2); BILIRUBIN,TOTAL 0.4 MG/DL (0.2-1.0); BLOOD UREA NITROGEN 20 MG/DL (7-18); CALCIUM LEVEL 9.9 MG/DL (8.8-10.2); CARBON DIOXIDE LEVEL 30 MEQ/L (21-32); CHLORIDE LEVEL 99 MEQ/L (98-107); CK-MB VALUE MASS 1.1 NG/ML (<3.6); CPK CREATINE PHOSPHOKINASE 26 U/L (26-192); CREATININE FOR GFR 0.87 MG/DL (0.55-1.30); GLOMERULAR FILTRATION RATE > 60.0 (>39); GLUCOSE, FASTING 79 MG/DL (70-100); MB/CK RELATIVE INDEX 4.23 (< OR =4); NT-PRO BNP 2347 PG/ML (<125); POTASSIUM SERUM 4.4 MEQ/L (3.5-5.1); SODIUM LEVEL 136 MEQ/L (136-145); TROPONIN I 0.03 NG/ML (< 0.10)
[2021-02-17] MEDS ORDERED: LevoFLOXacin IV 750 MG in IV 1 EA IV ONE (12:45)
[2021-02-17 12:51] LABS: RSV AMPLIFICATION NEGATIVE (NEGATIVE)
[2021-02-17] MEDS ORDERED: methylPREDNISolone 125MG 2ML VIAL IV ONE (13:40)
[2021-02-17] MEDS ORDERED: ACET500T15 PO (14:27)
[2021-02-17] MEDS ORDERED: MM S100C PO (14:27)
[2021-02-17] MEDS ORDERED: ALB2.5NEB INH (14:27)
[2021-02-17] MEDS ORDERED: POLY150C4 PO (14:27)
[2021-02-17] MEDS ORDERED: AMLO2.5T3 PO (14:29)
[2021-02-17] MEDS ORDERED: HOME MED LIST COMPLETE! XX SCH (14:30)
[2021-02-17] MEDS ORDERED: GLUCAGON INJ 1MG VIAL SC PRN (15:40)
[2021-02-17] MEDS ORDERED: GLUCOSE 4GM CHEW TABLET PO PRN (15:40)
[2021-02-17] MEDS ORDERED: DEXTROSE 50% 50 ML SYRINGE IV PRN (15:40)
[2021-02-17] MEDS ORDERED: ISOVUE-370 76% 100ML VIAL As Ordered ONE (15:54)
[2021-02-17] MEDS: HumaLOG INSULIN (NovoLOG) PER UNIT SC SCH ×2 (17:30→21:00)
[2021-02-17 18:21] LABS: INR 2.18; PROTHROMBIN TIME 24.7 SECONDS (12.7-14.5)
[2021-02-17 18:22] LABS: PARTIAL THROMBOPLASTIN TIME 62.5 SECONDS (25.9-37.0)
[2021-02-17 18:32] LABS: CK-MB VALUE MASS 1.4 NG/ML (<3.6); CPK CREATINE PHOSPHOKINASE 24 U/L (26-192); FERRITIN 103 NG/ML (8-252); IRON (FE) 9 UG/DL (50-170); MB/CK RELATIVE INDEX 5.83 (< OR =4); PERCENT SATURATION 6.6 % (13.2-45.0); TOTAL IRON BINDING CAPACITY 136 UG/DL (250-450); TROPONIN I 0.03 NG/ML (< 0.10)
[2021-02-17 19:19] LABS: HIV 1&2 SCREEN CENTAUR NEGATIVE (NEGATIVE)
[2021-02-17 19:39] VITALS: BP 109/55
[2021-02-17] MEDS: SYMBICORT 160/4.5MCG INHALER 6GM INH SCH (20:00)
[2021-02-17] MEDS: APIXABAN 5 MG TAB (ELIQUIS) PO SCH (21:33)
[2021-02-17] MEDS: ramipriL 5 MG CAP PO SCH (21:49)
[2021-02-17] MEDS: METOPROLOL TART 12.5 MG PER 1/2 TAB PO SCH (21:50)
[2021-02-17] MEDS: MEROPENEM INJ 1 GM in IV 1 EA IV SCH (21:52)
[2021-02-17 22:30] VITALS: BP 123/53
[2021-02-18] VITALS (26 sets, daily range): BP systolic 102–173; BP diastolic 49–94; O2SAT 87–95
[2021-02-18 00:28] LABS: CK-MB VALUE MASS 1.3 NG/ML (<3.6); MB/CK RELATIVE INDEX 4.81 (< OR =4); TROPONIN I 0.02 NG/ML (< 0.10)
[2021-02-18] MEDS: ACETAMINOPHEN TAB 650MG DOSE (2X325MG) PO PRN (02:02)
[2021-02-18] MEDS: MEROPENEM INJ 1 GM in IV 1 EA IV SCH ×3 (02:02→17:08)
[2021-02-18 06:26] LABS: HEMATOCRIT 27.1 % (36.0-47.0); HEMOGLOBIN 7.6 g/dl (12.0-15.5); LYMPH # 0.8 10^3/uL (1.5-5.0); LYMPH % 3.2 % (24.0-44.0); MEAN CORPUSCULAR HEMOGLOBIN 20.8 pg (27.0-33.0); MEAN CORPUSCULAR VOLUME 74.2 fl (80.0-96.0); MONO # 0.4 10^3/uL (0.0-0.8); MONO % 1.7 % (2.0-8.0); NEUTROPHILS # 24.7 10^3/uL (1.5-8.5); NEUTROPHILS % 93.8 % (36.0-66.0); PLATELET COUNT, AUTOMATED 613 10^3/uL (150-450); RED BLOOD COUNT 3.65 10^6/uL (4.00-5.40); WHITE BLOOD COUNT 26.3 10^3/uL (4.0-10.0)
[2021-02-18 06:50] LABS: BLOOD UREA NITROGEN 26 MG/DL (7-18); CALCIUM LEVEL 9.2 MG/DL (8.8-10.2); CARBON DIOXIDE LEVEL 30 MEQ/L (21-32); CHLORIDE LEVEL 101 MEQ/L (98-107); CREATININE FOR GFR 0.96 MG/DL (0.55-1.30); GLOMERULAR FILTRATION RATE > 60.0 (>39); GLUCOSE, FASTING 76 MG/DL (70-100); MAGNESIUM LEVEL 1.6 MG/DL (1.8-2.4); POTASSIUM SERUM 4.8 MEQ/L (3.5-5.1); SODIUM LEVEL 136 MEQ/L (136-145)
[2021-02-18] MEDS: HumaLOG INSULIN (NovoLOG) PER UNIT SC SCH ×4 (07:19→20:20)
[2021-02-18] MEDS: APIXABAN 5 MG TAB (ELIQUIS) PO SCH (08:12)
[2021-02-18] MEDS: ATORVASTATIN 20 MG TAB PO SCH (08:12)
[2021-02-18] MEDS: MAG SULF 1GM/100ML (MAG RUN) 1 GM in IV 1 EA IV SCH ×2 (08:12→09:49)
[2021-02-18] MEDS: MONTELUKAST 10 MG TAB PO SCH (08:13)
[2021-02-18] MEDS: METOPROLOL TART 12.5 MG PER 1/2 TAB PO SCH ×2 (08:19→20:10)
[2021-02-18] MEDS: TIOTROPIUM INHALER/CAPSULE (SPIRIVA) INH SCH (08:43)
[2021-02-18] MEDS: COMBIVENT RESPIMAT 100-20MCG INHALER 4GM INH SCH ×4 (08:43→19:21)
[2021-02-18] MEDS: SYMBICORT 160/4.5MCG INHALER 6GM INH SCH ×2 (08:43→19:20)
[2021-02-18] MEDS: IRON POLYSAC (NIFEREX) 150 MG CAP PO SCH ×2 (09:49→20:10)
[2021-02-18 11:55] LABS: HEMATOCRIT 24.2 % (36.0-47.0); MEAN CORPUSCULAR HEMOGLOBIN 20.6 pg (27.0-33.0); MEAN CORPUSCULAR HGB CONC 28.1 g/dl (32.0-36.5); MEAN CORPUSCULAR VOLUME 73.3 fl (80.0-96.0); PLATELET COUNT, AUTOMATED 554 10^3/uL (150-450); WHITE BLOOD COUNT 25.2 10^3/uL (4.0-10.0)
[2021-02-18 12:02] LABS: HEMOGLOBIN 6.8 g/dl (12.0-15.5)
[2021-02-18] MEDS ORDERED: CALCIUM CARBONATE 500 MG CHEW U/D PO PRN (14:55)
[2021-02-18] MEDS: ramipriL 5 MG CAP PO SCH (20:09)
[2021-02-18 20:18] LABS: HEMATOCRIT 32.5 % (36.0-47.0); MEAN CORPUSCULAR HEMOGLOBIN 23.5 pg (27.0-33.0); MEAN CORPUSCULAR HGB CONC 30.2 g/dl (32.0-36.5); MEAN CORPUSCULAR VOLUME 77.9 fl (80.0-96.0); PLATELET COUNT, AUTOMATED 533 10^3/uL (150-450); RED BLOOD COUNT 4.17 10^6/uL (4.00-5.40); WHITE BLOOD COUNT 25.8 10^3/uL (4.0-10.0)
[2021-02-18 20:22] LABS: HEMOGLOBIN 9.8 g/dl (12.0-15.5)
[2021-02-19] VITALS (19 sets, daily range): BP systolic 126–137; BP diastolic 56–83; O2SAT 82–97
[2021-02-19] MEDS: ACETAMINOPHEN TAB 650MG DOSE (2X325MG) PO PRN (00:01)
[2021-02-19] MEDS: MEROPENEM INJ 1 GM in IV 1 EA IV SCH ×3 (01:26→18:47)
[2021-02-19 07:52] LABS: BASO % 0.1 % (0.0-1.0); HEMATOCRIT 34.9 % (36.0-47.0); HEMOGLOBIN 10.5 g/dl (12.0-15.5); LYMPH % 4.2 % (24.0-44.0); MEAN CORPUSCULAR HEMOGLOBIN 23.3 pg (27.0-33.0); MEAN CORPUSCULAR HGB CONC 30.1 g/dl (32.0-36.5); MEAN CORPUSCULAR VOLUME 77.6 fl (80.0-96.0); MONO # 1.1 10^3/uL (0.0-0.8); MONO % 4.3 % (2.0-8.0); NEUTROPHILS # 21.9 10^3/uL (1.5-8.5); NEUTROPHILS % 90.5 % (36.0-66.0); PLATELET COUNT, AUTOMATED 504 10^3/uL (150-450); WHITE BLOOD COUNT 24.2 10^3/uL (4.0-10.0)
[2021-02-19] MEDS: COMBIVENT RESPIMAT 100-20MCG INHALER 4GM INH SCH ×4 (08:00→20:01)
[2021-02-19 08:18] LABS: CALCIUM LEVEL 9.9 MG/DL (8.8-10.2); CREATININE FOR GFR 1.02 MG/DL (0.55-1.30); GLOMERULAR FILTRATION RATE 56.4 (>39); MAGNESIUM LEVEL 2.2 MG/DL (1.8-2.4); POTASSIUM SERUM 4.1 MEQ/L (3.5-5.1); TROPONIN I 0.04 NG/ML (< 0.10)
[2021-02-19] MEDS: TIOTROPIUM INHALER/CAPSULE (SPIRIVA) INH SCH (08:30)
[2021-02-19] MEDS: SYMBICORT 160/4.5MCG INHALER 6GM INH SCH ×2 (08:30→20:01)
[2021-02-19] MEDS: HumaLOG INSULIN (NovoLOG) PER UNIT SC SCH ×4 (08:33→20:07)
[2021-02-19] MEDS: MONTELUKAST 10 MG TAB PO SCH (08:41)
[2021-02-19] MEDS: METOPROLOL TART 12.5 MG PER 1/2 TAB PO SCH ×2 (08:41→20:06)
[2021-02-19] MEDS: IRON POLYSAC (NIFEREX) 150 MG CAP PO SCH ×2 (08:41→20:06)
[2021-02-19] MEDS: ramipriL 5 MG CAP PO SCH (20:06)
[2021-02-20] VITALS (14 sets, daily range): BP systolic 120–171; BP diastolic 57–75; O2SAT 83–98
[2021-02-20] MEDS: MEROPENEM INJ 1 GM in IV 1 EA IV SCH ×3 (01:30→18:18)
[2021-02-20 05:49] LABS: HEMATOCRIT 31.2 % (36.0-47.0); HEMOGLOBIN 9.3 g/dl (12.0-15.5); LYMPH # 1.1 10^3/uL (1.5-5.0); LYMPH % 5.2 % (24.0-44.0); MEAN CORPUSCULAR HEMOGLOBIN 23.5 pg (27.0-33.0); MEAN CORPUSCULAR HGB CONC 29.8 g/dl (32.0-36.5); MEAN CORPUSCULAR VOLUME 78.8 fl (80.0-96.0); MONO % 4.9 % (2.0-8.0); NEUTROPHILS # 17.9 10^3/uL (1.5-8.5); NEUTROPHILS % 89.2 % (36.0-66.0); PLATELET COUNT, AUTOMATED 408 10^3/uL (150-450); RED BLOOD COUNT 3.96 10^6/uL (4.00-5.40); WHITE BLOOD COUNT 20.1 10^3/uL (4.0-10.0)
[2021-02-20 06:20] LABS: BLOOD UREA NITROGEN 36 MG/DL (7-18); CALCIUM LEVEL 9.9 MG/DL (8.8-10.2); CARBON DIOXIDE LEVEL 34 MEQ/L (21-32); CHLORIDE LEVEL 104 MEQ/L (98-107); CREATININE FOR GFR 0.89 MG/DL (0.55-1.30); GLOMERULAR FILTRATION RATE > 60.0 (>39); GLUCOSE, FASTING 77 MG/DL (70-100); POTASSIUM SERUM 4.2 MEQ/L (3.5-5.1); SODIUM LEVEL 137 MEQ/L (136-145)
[2021-02-20] MEDS: COMBIVENT RESPIMAT 100-20MCG INHALER 4GM INH SCH ×4 (08:00→20:00)
[2021-02-20] MEDS: TIOTROPIUM INHALER/CAPSULE (SPIRIVA) INH SCH (08:20)
[2021-02-20] MEDS: SYMBICORT 160/4.5MCG INHALER 6GM INH SCH ×2 (08:20→20:00)
[2021-02-20] MEDS: HumaLOG INSULIN (NovoLOG) PER UNIT SC SCH ×4 (09:09→20:02)
[2021-02-20] MEDS: METOPROLOL TART 12.5 MG PER 1/2 TAB PO SCH ×2 (09:16→20:02)
[2021-02-20] MEDS: MONTELUKAST 10 MG TAB PO SCH (09:16)
[2021-02-20] MEDS: IRON POLYSAC (NIFEREX) 150 MG CAP PO SCH ×2 (09:16→20:01)
[2021-02-20] MEDS: ATORVASTATIN 20 MG TAB PO SCH (09:16)
[2021-02-20] MEDS: ACETAMINOPHEN TAB 650MG DOSE (2X325MG) PO PRN ×2 (09:18→20:57)
[2021-02-20 12:15] LABS: HEMATOCRIT 31.6 % (36.0-47.0); HEMOGLOBIN 9.7 g/dl (12.0-15.5); MEAN CORPUSCULAR HEMOGLOBIN 24.3 pg (27.0-33.0); MEAN CORPUSCULAR HGB CONC 30.7 g/dl (32.0-36.5); PLATELET COUNT, AUTOMATED 416 10^3/uL (150-450); WHITE BLOOD COUNT 20.3 10^3/uL (4.0-10.0)
[2021-02-20] MEDS: ramipriL 5 MG CAP PO SCH (20:01)
[2021-02-21] VITALS (19 sets, daily range): BP systolic 124–164; BP diastolic 63–72; O2SAT 89–97
[2021-02-21] MEDS: MEROPENEM INJ 1 GM in IV 1 EA IV SCH ×3 (02:24→18:09)
[2021-02-21 05:42] LABS: BASO % 0.1 % (0.0-1.0); EOS # 0.1 10^3/uL (0.0-0.5); EOS % 0.4 % (0.0-3.0); HEMATOCRIT 31.1 % (36.0-47.0); HEMOGLOBIN 9.2 g/dl (12.0-15.5); LYMPH % 5.9 % (24.0-44.0); MEAN CORPUSCULAR HEMOGLOBIN 23.2 pg (27.0-33.0); MEAN CORPUSCULAR HGB CONC 29.6 g/dl (32.0-36.5); MEAN CORPUSCULAR VOLUME 78.5 fl (80.0-96.0); MONO % 5.9 % (2.0-8.0); NEUTROPHILS # 14.1 10^3/uL (1.5-8.5); PLATELET COUNT, AUTOMATED 363 10^3/uL (150-450); RED BLOOD COUNT 3.96 10^6/uL (4.00-5.40); WHITE BLOOD COUNT 16.2 10^3/uL (4.0-10.0)
[2021-02-21 06:06] LABS: BLOOD UREA NITROGEN 33 MG/DL (7-18); CALCIUM LEVEL 9.7 MG/DL (8.8-10.2); CARBON DIOXIDE LEVEL 36 MEQ/L (21-32); CHLORIDE LEVEL 105 MEQ/L (98-107); CREATININE FOR GFR 0.86 MG/DL (0.55-1.30); GLOMERULAR FILTRATION RATE > 60.0 (>39); GLUCOSE, FASTING 103 MG/DL (70-100); MAGNESIUM LEVEL 1.8 MG/DL (1.8-2.4); POTASSIUM SERUM 4.2 MEQ/L (3.5-5.1); SODIUM LEVEL 138 MEQ/L (136-145)
[2021-02-21] MEDS: TIOTROPIUM INHALER/CAPSULE (SPIRIVA) INH SCH (08:00)
[2021-02-21] MEDS: SYMBICORT 160/4.5MCG INHALER 6GM INH SCH ×2 (08:00→20:21)
[2021-02-21] MEDS: COMBIVENT RESPIMAT 100-20MCG INHALER 4GM INH SCH ×4 (08:00→20:21)
[2021-02-21] MEDS: HumaLOG INSULIN (NovoLOG) PER UNIT SC SCH ×4 (08:45→21:00)
[2021-02-21] MEDS: METOPROLOL TART 12.5 MG PER 1/2 TAB PO SCH ×2 (09:40→22:29)
[2021-02-21] MEDS: MONTELUKAST 10 MG TAB PO SCH (09:40)
[2021-02-21] MEDS: IRON POLYSAC (NIFEREX) 150 MG CAP PO SCH ×2 (09:40→22:29)
[2021-02-21] MEDS ORDERED: DOCUSATE SODIUM 100MG CAPSULE PO PRN (15:05)
[2021-02-21 16:09] LABS: HISTOPLASMA GAL'MANNAN AG UR <0.5 (<0.5 ng/mL)
[2021-02-21] MEDS: ACETAMINOPHEN TAB 650MG DOSE (2X325MG) PO PRN (18:10)
[2021-02-21] MEDS: APIXABAN 5 MG TAB (ELIQUIS) PO SCH (22:29)
[2021-02-21] MEDS: ramipriL 5 MG CAP PO SCH (22:29)
[2021-02-22] VITALS: BP 166/70
[2021-02-22 01:03] VITALS: BP 152/58
[2021-02-22] MEDS: MEROPENEM INJ 1 GM in IV 1 EA IV SCH ×3 (01:32→17:40)
[2021-02-22 01:57] VITALS: O2SAT 91
[2021-02-22 07:07] LABS: BASO % 0.2 % (0.0-1.0); EOS # 0.1 10^3/uL (0.0-0.5); EOS % 0.3 % (0.0-3.0); HEMATOCRIT 31.7 % (36.0-47.0); HEMOGLOBIN 9.5 g/dl (12.0-15.5); LYMPH % 4.9 % (24.0-44.0); MEAN CORPUSCULAR HEMOGLOBIN 23.5 pg (27.0-33.0); MEAN CORPUSCULAR VOLUME 78.3 fl (80.0-96.0); MONO % 5.1 % (2.0-8.0); NEUTROPHILS # 17.2 10^3/uL (1.5-8.5); NEUTROPHILS % 88.6 % (36.0-66.0); PLATELET COUNT, AUTOMATED 360 10^3/uL (150-450); RED BLOOD COUNT 4.05 10^6/uL (4.00-5.40); WHITE BLOOD COUNT 19.4 10^3/uL (4.0-10.0)
[2021-02-22] MEDS: HumaLOG INSULIN (NovoLOG) PER UNIT SC SCH ×4 (07:30→20:18)
[2021-02-22] MEDS: COMBIVENT RESPIMAT 100-20MCG INHALER 4GM INH SCH ×4 (07:32→19:32)
[2021-02-22] MEDS: TIOTROPIUM INHALER/CAPSULE (SPIRIVA) INH SCH (07:32)
[2021-02-22] MEDS: SYMBICORT 160/4.5MCG INHALER 6GM INH SCH ×2 (07:32→19:32)
[2021-02-22 07:41] LABS: BLOOD UREA NITROGEN 26 MG/DL (7-18); CALCIUM LEVEL 9.5 MG/DL (8.8-10.2); CARBON DIOXIDE LEVEL 34 MEQ/L (21-32); CHLORIDE LEVEL 102 MEQ/L (98-107); CREATININE FOR GFR 0.68 MG/DL (0.55-1.30); GLOMERULAR FILTRATION RATE > 60.0 (>39); GLUCOSE, FASTING 81 MG/DL (70-100); MAGNESIUM LEVEL 1.7 MG/DL (1.8-2.4); POTASSIUM SERUM 4.3 MEQ/L (3.5-5.1); SODIUM LEVEL 137 MEQ/L (136-145)
[2021-02-22 09:15] VITALS: O2SAT 92
[2021-02-22] MEDS: APIXABAN 5 MG TAB (ELIQUIS) PO SCH ×2 (09:28→20:22)
[2021-02-22] MEDS: IRON POLYSAC (NIFEREX) 150 MG CAP PO SCH ×2 (09:28→20:22)
[2021-02-22] MEDS: MONTELUKAST 10 MG TAB PO SCH (09:28)
[2021-02-22] MEDS: ATORVASTATIN 20 MG TAB PO SCH (09:28)
[2021-02-22] MEDS: METOPROLOL TART 12.5 MG PER 1/2 TAB PO SCH ×2 (09:29→20:23)
[2021-02-22] MEDS ORDERED: MAG SULF 1GM/100ML (MAG RUN) 1 GM in IV 1 EA IV ONE (10:00)
[2021-02-22 10:10] LABS: NT-PRO BNP 2735 PG/ML (<125)
[2021-02-22 14:00] VITALS: BP 135/63
[2021-02-22] MEDS: ramipriL 5 MG CAP PO SCH (20:22)
[2021-02-22 22:00] VITALS: BP 156/58
[2021-02-23] MEDS: MEROPENEM INJ 1 GM in IV 1 EA IV SCH ×3 (01:27→17:00)
[2021-02-23 06:00] VITALS: BP 174/58
[2021-02-23 07:03] LABS: BASO % 0.1 % (0.0-1.0); EOS # 0.2 10^3/uL (0.0-0.5); EOS % 1.1 % (0.0-3.0); HEMATOCRIT 30.2 % (36.0-47.0); HEMOGLOBIN 8.9 g/dl (12.0-15.5); LYMPH # 1.1 10^3/uL (1.5-5.0); LYMPH % 7.3 % (24.0-44.0); MEAN CORPUSCULAR HEMOGLOBIN 23.1 pg (27.0-33.0); MEAN CORPUSCULAR HGB CONC 29.5 g/dl (32.0-36.5); MEAN CORPUSCULAR VOLUME 78.4 fl (80.0-96.0); MONO # 1.3 10^3/uL (0.0-0.8); MONO % 9.2 % (2.0-8.0); NEUTROPHILS # 11.8 10^3/uL (1.5-8.5); NEUTROPHILS % 81.6 % (36.0-66.0); PLATELET COUNT, AUTOMATED 343 10^3/uL (150-450); RED BLOOD COUNT 3.85 10^6/uL (4.00-5.40); WHITE BLOOD COUNT 14.4 10^3/uL (4.0-10.0)
[2021-02-23 07:14] LABS: BLOOD UREA NITROGEN 21 MG/DL (7-18); CALCIUM LEVEL 9.3 MG/DL (8.8-10.2); CARBON DIOXIDE LEVEL 37 MEQ/L (21-32); CHLORIDE LEVEL 100 MEQ/L (98-107); CREATININE FOR GFR 0.64 MG/DL (0.55-1.30); GLOMERULAR FILTRATION RATE > 60.0 (>39); GLUCOSE, FASTING 86 MG/DL (70-100); MAGNESIUM LEVEL 1.8 MG/DL (1.8-2.4); POTASSIUM SERUM 4.2 MEQ/L (3.5-5.1); SODIUM LEVEL 138 MEQ/L (136-145)
[2021-02-23] MEDS: HumaLOG INSULIN (NovoLOG) PER UNIT SC SCH ×4 (07:30→21:00)
[2021-02-23] MEDS: COMBIVENT RESPIMAT 100-20MCG INHALER 4GM INH SCH ×3 (07:47→15:32)
[2021-02-23] MEDS: TIOTROPIUM INHALER/CAPSULE (SPIRIVA) INH SCH (07:47)
[2021-02-23] MEDS: SYMBICORT 160/4.5MCG INHALER 6GM INH SCH (07:48)
[2021-02-23 09:30] VITALS: O2SAT 92
[2021-02-23] MEDS: IRON POLYSAC (NIFEREX) 150 MG CAP PO SCH ×2 (09:58→21:14)
[2021-02-23] MEDS: MONTELUKAST 10 MG TAB PO SCH (09:58)
[2021-02-23] MEDS: METOPROLOL TART 12.5 MG PER 1/2 TAB PO SCH ×2 (09:59→21:15)
[2021-02-23] MEDS: APIXABAN 5 MG TAB (ELIQUIS) PO SCH ×2 (09:59→21:14)
[2021-02-23 14:00] VITALS: BP 163/74
[2021-02-23] MEDS: ACETAMINOPHEN TAB 650MG DOSE (2X325MG) PO PRN ×2 (14:27→21:18)
[2021-02-23] MEDS: ramipriL 5 MG CAP PO SCH (21:15)
[2021-02-23 23:06] LABS: ASPERGILLUS GALACTOMANNAN AG 0.06 Index (0.00-0.49); CRYPTOCOCCUS ANTIBODY SERUM Negative (Neg:<1:2); CRYPTOCOCCUS ANTIGEN SER Negative (Negative); FUNGITELL, SERUM <31 pg/mL (<80)
[2021-02-24] MEDS: SYMBICORT 160/4.5MCG INHALER 6GM INH SCH ×3 (00:54→21:51)
[2021-02-24] MEDS: COMBIVENT RESPIMAT 100-20MCG INHALER 4GM INH SCH ×5 (00:57→21:52)
[2021-02-24] MEDS: MEROPENEM INJ 1 GM in IV 1 EA IV SCH (02:55)
[2021-02-24 06:00] VITALS: BP 145/66
[2021-02-24 06:31] LABS: BASO % 0.1 % (0.0-1.0); EOS # 0.1 10^3/uL (0.0-0.5); EOS % 0.6 % (0.0-3.0); HEMATOCRIT 32.3 % (36.0-47.0); HEMOGLOBIN 9.7 g/dl (12.0-15.5); LYMPH # 0.9 10^3/uL (1.5-5.0); LYMPH % 5.5 % (24.0-44.0); MEAN CORPUSCULAR HEMOGLOBIN 23.4 pg (27.0-33.0); MEAN CORPUSCULAR VOLUME 77.8 fl (80.0-96.0); MONO # 1.2 10^3/uL (0.0-0.8); MONO % 6.9 % (2.0-8.0); NEUTROPHILS # 14.6 10^3/uL (1.5-8.5); NEUTROPHILS % 86.1 % (36.0-66.0); PLATELET COUNT, AUTOMATED 373 10^3/uL (150-450); RED BLOOD COUNT 4.15 10^6/uL (4.00-5.40)
[2021-02-24 07:04] LABS: BLOOD UREA NITROGEN 22 MG/DL (7-18); CARBON DIOXIDE LEVEL 37 MEQ/L (21-32); CHLORIDE LEVEL 99 MEQ/L (98-107); CREATININE FOR GFR 0.64 MG/DL (0.55-1.30); GLOMERULAR FILTRATION RATE > 60.0 (>39); GLUCOSE, FASTING 87 MG/DL (70-100); MAGNESIUM LEVEL 1.6 MG/DL (1.8-2.4); POTASSIUM SERUM 4.4 MEQ/L (3.5-5.1); SODIUM LEVEL 136 MEQ/L (136-145)
[2021-02-24] MEDS: HumaLOG INSULIN (NovoLOG) PER UNIT SC SCH ×4 (07:30→20:28)
[2021-02-24] MEDS: TIOTROPIUM INHALER/CAPSULE (SPIRIVA) INH SCH (07:45)
[2021-02-24] MEDS: MONTELUKAST 10 MG TAB PO SCH (08:35)
[2021-02-24] MEDS: IRON POLYSAC (NIFEREX) 150 MG CAP PO SCH ×2 (08:38→20:35)
[2021-02-24] MEDS: METOPROLOL TART 12.5 MG PER 1/2 TAB PO SCH ×2 (08:38→20:37)
[2021-02-24] MEDS: ATORVASTATIN 20 MG TAB PO SCH (08:39)
[2021-02-24] MEDS: APIXABAN 5 MG TAB (ELIQUIS) PO SCH ×2 (08:39→20:35)
[2021-02-24] MEDS ORDERED: MAG SULF 1GM/100ML (MAG RUN) 1 GM in IV 1 EA IV ONE (10:00)
[2021-02-24] MEDS: BACTRIM 160MG/800MG DS TAB PO SCH ×2 (10:36→20:35)
[2021-02-24] MEDS: ACETAMINOPHEN TAB 650MG DOSE (2X325MG) PO PRN ×2 (10:37→11:23)
[2021-02-24 14:00] VITALS: BP 121/38
[2021-02-24 15:00] VITALS: BP 144/65
[2021-02-24] MEDS: ALBUTEROL 90 MCG/ACT 8GM HFA INHALER INH PRN (17:51)
[2021-02-24] MEDS: ramipriL 5 MG CAP PO SCH (20:36)
[2021-02-24 22:00] VITALS: BP 155/66
[2021-02-24 23:10] VITALS: O2SAT 93
[2021-02-25] MEDS: ALBUTEROL 90 MCG/ACT 8GM HFA INHALER INH PRN (02:54)
[2021-02-25 06:00] VITALS: BP 154/65
[2021-02-25] MEDS: HumaLOG INSULIN (NovoLOG) PER UNIT SC SCH ×4 (07:30→20:34)
[2021-02-25] MEDS: COMBIVENT RESPIMAT 100-20MCG INHALER 4GM INH SCH ×4 (07:39→19:50)
[2021-02-25] MEDS: TIOTROPIUM INHALER/CAPSULE (SPIRIVA) INH SCH (07:41)
[2021-02-25] MEDS: SYMBICORT 160/4.5MCG INHALER 6GM INH SCH ×2 (07:41→19:50)
[2021-02-25 08:10] LABS: ERYTHROCYTE SEDIMENTATION RATE 73 mm/hr (0-30)
[2021-02-25] MEDS: METOPROLOL TART 12.5 MG PER 1/2 TAB PO SCH ×2 (08:25→20:34)
[2021-02-25] MEDS: IRON POLYSAC (NIFEREX) 150 MG CAP PO SCH ×2 (08:25→20:33)
[2021-02-25] MEDS: MONTELUKAST 10 MG TAB PO SCH (08:28)
[2021-02-25] MEDS: APIXABAN 5 MG TAB (ELIQUIS) PO SCH ×2 (08:28→20:33)
[2021-02-25] MEDS: BACTRIM 160MG/800MG DS TAB PO SCH ×2 (08:28→20:33)
[2021-02-25 08:53] LABS: BLOOD UREA NITROGEN 20 MG/DL (7-18); CARBON DIOXIDE LEVEL 39 MEQ/L (21-32); CHLORIDE LEVEL 98 MEQ/L (98-107); CREATININE FOR GFR 0.66 MG/DL (0.55-1.30); GLOMERULAR FILTRATION RATE > 60.0 (>39); GLUCOSE, FASTING 92 MG/DL (70-100); MAGNESIUM LEVEL 1.8 MG/DL (1.8-2.4); SODIUM LEVEL 139 MEQ/L (136-145)
[2021-02-25 08:58] LABS: BASO % 0.2 % (0.0-1.0); EOS # 0.1 10^3/uL (0.0-0.5); EOS % 0.6 % (0.0-3.0); HEMATOCRIT 29.6 % (36.0-47.0); HEMOGLOBIN 8.8 g/dl (12.0-15.5); LYMPH % 6.5 % (24.0-44.0); MEAN CORPUSCULAR HEMOGLOBIN 23.1 pg (27.0-33.0); MEAN CORPUSCULAR HGB CONC 29.7 g/dl (32.0-36.5); MEAN CORPUSCULAR VOLUME 77.7 fl (80.0-96.0); MONO # 1.3 10^3/uL (0.0-0.8); MONO % 8.5 % (2.0-8.0); NEUTROPHILS # 13.2 10^3/uL (1.5-8.5); NEUTROPHILS % 83.8 % (36.0-66.0); PLATELET COUNT, AUTOMATED 379 10^3/uL (150-450); RED BLOOD COUNT 3.81 10^6/uL (4.00-5.40); WHITE BLOOD COUNT 15.7 10^3/uL (4.0-10.0)
[2021-02-25 12:12] LABS: NT-PRO BNP 2296 PG/ML (<125)
[2021-02-25] MEDS ORDERED: FUROSEMIDE 20MG/2ML VIAL (J1940) IV ONE (12:50)
[2021-02-25] MEDS: ACETAMINOPHEN TAB 650MG DOSE (2X325MG) PO PRN ×2 (14:14→21:19)
[2021-02-25] MEDS: ramipriL 5 MG CAP PO SCH (20:33)
[2021-02-25 22:00] VITALS: BP 143/64
[2021-02-26] MEDS: ALBUTEROL 90 MCG/ACT 8GM HFA INHALER INH PRN ×3 (01:11→23:09)
[2021-02-26 06:00] VITALS: BP 130/66
[2021-02-26 06:39] LABS: BASO % 0.2 % (0.0-1.0); EOS # 0.1 10^3/uL (0.0-0.5); EOS % 0.3 % (0.0-3.0); HEMATOCRIT 29.2 % (36.0-47.0); HEMOGLOBIN 8.6 g/dl (12.0-15.5); LYMPH # 0.9 10^3/uL (1.5-5.0); LYMPH % 4.8 % (24.0-44.0); MEAN CORPUSCULAR HEMOGLOBIN 22.9 pg (27.0-33.0); MEAN CORPUSCULAR HGB CONC 29.5 g/dl (32.0-36.5); MEAN CORPUSCULAR VOLUME 77.9 fl (80.0-96.0); MONO # 1.3 10^3/uL (0.0-0.8); NEUTROPHILS # 16.6 10^3/uL (1.5-8.5); PLATELET COUNT, AUTOMATED 428 10^3/uL (150-450); RED BLOOD COUNT 3.75 10^6/uL (4.00-5.40)
[2021-02-26 07:01] LABS: BLOOD UREA NITROGEN 18 MG/DL (7-18); CARBON DIOXIDE LEVEL 39 MEQ/L (21-32); CHLORIDE LEVEL 97 MEQ/L (98-107); CREATININE FOR GFR 0.81 MG/DL (0.55-1.30); GLOMERULAR FILTRATION RATE > 60.0 (>39); GLUCOSE, FASTING 78 MG/DL (70-100); MAGNESIUM LEVEL 1.9 MG/DL (1.8-2.4); POTASSIUM SERUM 4.3 MEQ/L (3.5-5.1); SODIUM LEVEL 136 MEQ/L (136-145)
[2021-02-26] MEDS: HumaLOG INSULIN (NovoLOG) PER UNIT SC SCH ×4 (07:30→20:31)
[2021-02-26] MEDS: TIOTROPIUM INHALER/CAPSULE (SPIRIVA) INH SCH (07:46)
[2021-02-26] MEDS: SYMBICORT 160/4.5MCG INHALER 6GM INH SCH ×2 (07:47→19:26)
[2021-02-26] MEDS: COMBIVENT RESPIMAT 100-20MCG INHALER 4GM INH SCH ×4 (08:00→19:26)
[2021-02-26] MEDS: ATORVASTATIN 20 MG TAB PO SCH (08:47)
[2021-02-26] MEDS: IRON POLYSAC (NIFEREX) 150 MG CAP PO SCH ×2 (08:47→20:29)
[2021-02-26] MEDS: APIXABAN 5 MG TAB (ELIQUIS) PO SCH (08:47)
[2021-02-26] MEDS: BACTRIM 160MG/800MG DS TAB PO SCH ×2 (08:48→20:29)
[2021-02-26] MEDS: METOPROLOL TART 12.5 MG PER 1/2 TAB PO SCH ×2 (08:48→20:30)
[2021-02-26] MEDS: MONTELUKAST 10 MG TAB PO SCH (08:48)
[2021-02-26] MEDS ORDERED: FUROSEMIDE 20MG/2ML VIAL (J1940) IV ONE (11:20)
[2021-02-26] MEDS: ACETAMINOPHEN TAB 650MG DOSE (2X325MG) PO PRN ×2 (12:00→21:41)
[2021-02-26] MEDS ORDERED: ISOVUE-370 76% 100ML VIAL As Ordered ONE (14:43)
[2021-02-26] MEDS ORDERED: PILL CUTTER 1 EACH XX PRN (16:15)
[2021-02-26] MEDS: AZITHROMYCIN 250MG TABLET PO SCH (16:19)
[2021-02-26] MEDS: ETHAMBUTOL 400MG TAB PO SCH (18:26)
[2021-02-26] MEDS: rifAMPin 150MG CAPSULE PO SCH (18:26)
[2021-02-26] MEDS: APIXABAN 2.5 MG TAB (ELIQUIS) PO SCH (20:30)
[2021-02-27] MEDS: ALBUTEROL 90 MCG/ACT 8GM HFA INHALER INH PRN (03:34)
[2021-02-27 06:00] VITALS: BP 121/49
[2021-02-27 06:45] LABS: BASO % 0.1 % (0.0-1.0); EOS # 0.1 10^3/uL (0.0-0.5); EOS % 0.3 % (0.0-3.0); HEMATOCRIT 30.5 % (36.0-47.0); LYMPH # 0.7 10^3/uL (1.5-5.0); LYMPH % 3.3 % (24.0-44.0); MEAN CORPUSCULAR HEMOGLOBIN 23.3 pg (27.0-33.0); MEAN CORPUSCULAR HGB CONC 29.5 g/dl (32.0-36.5); MONO # 1.2 10^3/uL (0.0-0.8); MONO % 5.5 % (2.0-8.0); NEUTROPHILS # 18.9 10^3/uL (1.5-8.5); NEUTROPHILS % 89.9 % (36.0-66.0); PLATELET COUNT, AUTOMATED 524 10^3/uL (150-450); RED BLOOD COUNT 3.86 10^6/uL (4.00-5.40)
[2021-02-27 07:16] LABS: BLOOD UREA NITROGEN 19 MG/DL (7-18); CALCIUM LEVEL 9.2 MG/DL (8.8-10.2); CARBON DIOXIDE LEVEL 39 MEQ/L (21-32); CHLORIDE LEVEL 94 MEQ/L (98-107); CREATININE FOR GFR 0.92 MG/DL (0.55-1.30); GLOMERULAR FILTRATION RATE > 60.0 (>39); GLUCOSE, FASTING 62 MG/DL (70-100); NT-PRO BNP 1939 PG/ML (<125); POTASSIUM SERUM 4.2 MEQ/L (3.5-5.1); SODIUM LEVEL 136 MEQ/L (136-145)
[2021-02-27] MEDS: COMBIVENT RESPIMAT 100-20MCG INHALER 4GM INH SCH ×4 (07:23→19:34)
[2021-02-27] MEDS: SYMBICORT 160/4.5MCG INHALER 6GM INH SCH ×2 (07:23→19:34)
[2021-02-27] MEDS: TIOTROPIUM INHALER/CAPSULE (SPIRIVA) INH SCH (07:23)
[2021-02-27] MEDS: HumaLOG INSULIN (NovoLOG) PER UNIT SC SCH ×4 (07:30→21:00)
[2021-02-27 08:59] VITALS: BP 140/57
[2021-02-27] MEDS: rifAMPin 150MG CAPSULE PO SCH (09:56)
[2021-02-27] MEDS: ETHAMBUTOL 400MG TAB PO SCH (09:57)
[2021-02-27] MEDS: IRON POLYSAC (NIFEREX) 150 MG CAP PO SCH ×2 (09:58→21:45)
[2021-02-27] MEDS: METOPROLOL TART 12.5 MG PER 1/2 TAB PO SCH ×2 (09:59→21:28)
[2021-02-27] MEDS: APIXABAN 2.5 MG TAB (ELIQUIS) PO SCH (10:00)
[2021-02-27] MEDS: MONTELUKAST 10 MG TAB PO SCH (10:01)
[2021-02-27] MEDS: AZITHROMYCIN 250MG TABLET PO SCH (10:01)
[2021-02-27] MEDS: BACTRIM 160MG/800MG DS TAB PO SCH (10:01)
[2021-02-27] MEDS: ACETAMINOPHEN TAB 650MG DOSE (2X325MG) PO PRN (10:24)
[2021-02-27] MEDS: MEROPENEM INJ 1 GM in IV 1 EA IV SCH ×2 (11:32→18:18)
[2021-02-27] MEDS ORDERED: VANCOMYCIN HCL 750 MG, VIAL MATE ADAPTER 1 EACH in NS 250 ML IV ONE (12:00)
[2021-02-27 12:05] VITALS: BP 119/46
[2021-02-27 12:40] VITALS: BP 103/49
[2021-02-27] MEDS ORDERED: VANCOMYCIN HCL 500 MG in D5W MINI-BAG PLUS 100 ML IV ONE (13:00)
[2021-02-27] MEDS ORDERED: LR 1,000 ML IV ONE (14:00)
[2021-02-27 15:14] VITALS: BP 123/76
[2021-02-27 16:17] LABS: SOURCE, BODY FLUID PLEURAL
[2021-02-27 16:18] LABS: APPEARANCE, BODY FLUID CLEAR (CLEAR); PLEURAL FL COLOR PALE YELLOW (COLORLESS)
[2021-02-27 16:44] LABS: AMYLASE, BODY FLUID 20 U/L (NOT ESTABLISHED); LDH, BODY FLUID 58 U/L (NOT ESTABLISHED); SOURCE, BODY FLUID AMYLASE PLEURAL; SOURCE, BODY FLUID GLUCOSE PLEURAL; SOURCE, BODY FLUID LDH PLEURAL; SOURCE, BODY FLUID TOT PROTEIN PLEURAL; TOTAL PROTEIN, BODY FLUID 2.8 G/DL (NOT ESTABLISHED)
[2021-02-27 17:15] LABS: PH BODY FLUID 7.695 UNITS (NOT ESTABLISHED); SOURCE, BODY FLUID pH PLEURAL
[2021-02-27 20:00] VITALS: BP 120/56
[2021-02-27] MEDS: VANCOMYCIN HCL 500 MG in D5W MINI-BAG PLUS 100 ML IV SCH (21:34)
[2021-02-28] VITALS (10 sets, daily range): BP systolic 117–156; BP diastolic 53–70
[2021-02-28] MEDS: ALBUTEROL 90 MCG/ACT 8GM HFA INHALER INH PRN (01:00)
[2021-02-28] MEDS: MEROPENEM INJ 1 GM in IV 1 EA IV SCH ×3 (02:43→18:04)
[2021-02-28 04:06] LABS: BASO % 0.2 % (0.0-1.0); EOS # 0.1 10^3/uL (0.0-0.5); EOS % 0.5 % (0.0-3.0); HEMATOCRIT 27.2 % (36.0-47.0); HEMOGLOBIN 7.9 g/dl (12.0-15.5); LYMPH # 0.6 10^3/uL (1.5-5.0); LYMPH % 3.1 % (24.0-44.0); MEAN CORPUSCULAR HEMOGLOBIN 23.4 pg (27.0-33.0); MEAN CORPUSCULAR VOLUME 80.5 fl (80.0-96.0); MONO % 5.1 % (2.0-8.0); NEUTROPHILS # 17.3 10^3/uL (1.5-8.5); NEUTROPHILS % 90.4 % (36.0-66.0); PLATELET COUNT, AUTOMATED 486 10^3/uL (150-450); RED BLOOD COUNT 3.38 10^6/uL (4.00-5.40); WHITE BLOOD COUNT 19.1 10^3/uL (4.0-10.0)
[2021-02-28 04:36] LABS: BLOOD UREA NITROGEN 17 MG/DL (7-18); CALCIUM LEVEL 8.8 MG/DL (8.8-10.2); CARBON DIOXIDE LEVEL 38 MEQ/L (21-32); CHLORIDE LEVEL 95 MEQ/L (98-107); CREATININE FOR GFR 0.95 MG/DL (0.55-1.30); GLOMERULAR FILTRATION RATE > 60.0 (>39); GLUCOSE, FASTING 86 MG/DL (70-100); MAGNESIUM LEVEL 1.9 MG/DL (1.8-2.4); POTASSIUM SERUM 3.9 MEQ/L (3.5-5.1); SODIUM LEVEL 136 MEQ/L (136-145)
[2021-02-28] MEDS: HumaLOG INSULIN (NovoLOG) PER UNIT SC SCH ×4 (07:30→20:34)
[2021-02-28] MEDS: COMBIVENT RESPIMAT 100-20MCG INHALER 4GM INH SCH ×4 (08:00→20:00)
[2021-02-28] MEDS: TIOTROPIUM INHALER/CAPSULE (SPIRIVA) INH SCH (08:25)
[2021-02-28] MEDS: SYMBICORT 160/4.5MCG INHALER 6GM INH SCH ×2 (08:30→20:00)
[2021-02-28] MEDS: rifAMPin 150MG CAPSULE PO SCH (09:06)
[2021-02-28] MEDS: MONTELUKAST 10 MG TAB PO SCH (09:06)
[2021-02-28] MEDS: METOPROLOL TART 12.5 MG PER 1/2 TAB PO SCH ×2 (09:06→20:36)
[2021-02-28] MEDS: IRON POLYSAC (NIFEREX) 150 MG CAP PO SCH ×2 (09:06→20:36)
[2021-02-28] MEDS: AZITHROMYCIN 250MG TABLET PO SCH (09:06)
[2021-02-28] MEDS: ATORVASTATIN 20 MG TAB PO SCH (09:06)
[2021-02-28] MEDS: ETHAMBUTOL 400MG TAB PO SCH (09:07)
[2021-02-28] MEDS: VANCOMYCIN HCL 500 MG in D5W MINI-BAG PLUS 100 ML IV SCH (09:07)
[2021-02-28 10:20] LABS: VANCOMYCIN LEVEL TROUGH 22.6 UG/ML (10.0-20.0)
[2021-02-28] MEDS: LACTOBACILLUS ACIDOPHILUS CAP (BACID) PO SCH ×3 (12:30→20:36)
[2021-02-28 15:50] LABS: ALBUMIN 0.8 GM/DL (3.2-5.2); ALT/SGPT 11 U/L (12-78); BILIRUBIN,DIRECT 0.2 MG/DL (0.0-0.2); BILIRUBIN,TOTAL 0.4 MG/DL (0.2-1.0); TOTAL PROTEIN 5.5 GM/DL (6.4-8.2)
[2021-02-28 18:01] LABS: CLOSTRIDIUM DIFFICILE PCR NEGATIVE (NEGATIVE)
[2021-02-28] MEDS: ACETAMINOPHEN TAB 650MG DOSE (2X325MG) PO PRN (22:43)
[2021-03-01] VITALS: BP 134/63
[2021-03-01] MEDS: MEROPENEM INJ 1 GM in IV 1 EA IV SCH ×3 (03:11→18:47)
[2021-03-01 04:00] VITALS: BP 139/82
[2021-03-01] MEDS: ALBUTEROL 90 MCG/ACT 8GM HFA INHALER INH PRN (04:17)
[2021-03-01 05:31] LABS: BASO # 0.1 10^3/uL (0.0-0.2); BASO % 0.4 % (0.0-1.0); EOS # 0.1 10^3/uL (0.0-0.5); EOS % 1.2 % (0.0-3.0); HEMATOCRIT 32.2 % (36.0-47.0); HEMOGLOBIN 9.4 g/dl (12.0-15.5); LYMPH # 0.8 10^3/uL (1.5-5.0); LYMPH % 6.9 % (24.0-44.0); MEAN CORPUSCULAR HEMOGLOBIN 22.8 pg (27.0-33.0); MEAN CORPUSCULAR HGB CONC 29.2 g/dl (32.0-36.5); MONO % 8.1 % (2.0-8.0); NEUTROPHILS # 10.1 10^3/uL (1.5-8.5); NEUTROPHILS % 82.7 % (36.0-66.0); PLATELET COUNT, AUTOMATED 485 10^3/uL (150-450); RED BLOOD COUNT 4.13 10^6/uL (4.00-5.40); WHITE BLOOD COUNT 12.2 10^3/uL (4.0-10.0)
[2021-03-01 05:49] LABS: BLOOD UREA NITROGEN 13 MG/DL (7-18); CALCIUM LEVEL 8.7 MG/DL (8.8-10.2); CARBON DIOXIDE LEVEL 35 MEQ/L (21-32); CHLORIDE LEVEL 97 MEQ/L (98-107); CREATININE FOR GFR 0.89 MG/DL (0.55-1.30); GLOMERULAR FILTRATION RATE > 60.0 (>39); GLUCOSE, FASTING 92 MG/DL (70-100); MAGNESIUM LEVEL 1.7 MG/DL (1.8-2.4); SODIUM LEVEL 137 MEQ/L (136-145)
[2021-03-01] MEDS ORDERED: MAG SULF 1GM/100ML (MAG RUN) 1 GM in IV 1 EA IV ONE (07:15)
[2021-03-01] MEDS: HumaLOG INSULIN (NovoLOG) PER UNIT SC SCH ×4 (07:30→21:00)
[2021-03-01] MEDS: SYMBICORT 160/4.5MCG INHALER 6GM INH SCH ×2 (07:47→19:31)
[2021-03-01] MEDS: COMBIVENT RESPIMAT 100-20MCG INHALER 4GM INH SCH ×4 (07:47→19:31)
[2021-03-01] MEDS: TIOTROPIUM INHALER/CAPSULE (SPIRIVA) INH SCH (07:47)
[2021-03-01 08:00] VITALS: BP 139/65
[2021-03-01] MEDS: LACTOBACILLUS ACIDOPHILUS CAP (BACID) PO SCH ×4 (09:32→21:52)
[2021-03-01] MEDS: IRON POLYSAC (NIFEREX) 150 MG CAP PO SCH ×2 (09:32→21:52)
[2021-03-01] MEDS: rifAMPin 150MG CAPSULE PO SCH (09:32)
[2021-03-01] MEDS: METOPROLOL TART 12.5 MG PER 1/2 TAB PO SCH ×2 (09:42→21:53)
[2021-03-01] MEDS: AZITHROMYCIN 250MG TABLET PO SCH (09:43)
[2021-03-01] MEDS: MONTELUKAST 10 MG TAB PO SCH (09:43)
[2021-03-01] MEDS: ETHAMBUTOL 400MG TAB PO SCH (09:44)
[2021-03-01] MEDS: APIXABAN 2.5 MG TAB (ELIQUIS) PO SCH ×2 (13:49→21:52)
[2021-03-01 15:45] VITALS: BP 154/67
[2021-03-01 22:00] VITALS: BP 140/64
[2021-03-02] MEDS: ALBUTEROL 90 MCG/ACT 8GM HFA INHALER INH PRN ×2 (03:12→23:01)
[2021-03-02] MEDS: MEROPENEM INJ 1 GM in IV 1 EA IV SCH ×3 (04:00→18:25)
[2021-03-02 06:00] VITALS: BP 132/63
[2021-03-02 06:01] LABS: BASO % 0.5 % (0.0-1.0); EOS # 0.2 10^3/uL (0.0-0.5); EOS % 1.7 % (0.0-3.0); HEMOGLOBIN 9.2 g/dl (12.0-15.5); LYMPH # 0.9 10^3/uL (1.5-5.0); LYMPH % 10.3 % (24.0-44.0); MEAN CORPUSCULAR HEMOGLOBIN 22.7 pg (27.0-33.0); MEAN CORPUSCULAR HGB CONC 28.8 g/dl (32.0-36.5); MEAN CORPUSCULAR VOLUME 78.8 fl (80.0-96.0); MONO # 0.9 10^3/uL (0.0-0.8); MONO % 10.4 % (2.0-8.0); NEUTROPHILS # 6.7 10^3/uL (1.5-8.5); NEUTROPHILS % 76.5 % (36.0-66.0); PLATELET COUNT, AUTOMATED 437 10^3/uL (150-450); RED BLOOD COUNT 4.06 10^6/uL (4.00-5.40); WHITE BLOOD COUNT 8.7 10^3/uL (4.0-10.0)
[2021-03-02 06:25] LABS: BLOOD UREA NITROGEN 12 MG/DL (7-18); C REACTIVE PROTEIN QUANTITATIV 9.24 MG/DL (0.00-0.30); CALCIUM LEVEL 8.8 MG/DL (8.8-10.2); CARBON DIOXIDE LEVEL 37 MEQ/L (21-32); CHLORIDE LEVEL 97 MEQ/L (98-107); CREATININE FOR GFR 0.74 MG/DL (0.55-1.30); GLOMERULAR FILTRATION RATE > 60.0 (>39); GLUCOSE, FASTING 81 MG/DL (70-100); MAGNESIUM LEVEL 1.8 MG/DL (1.8-2.4); POTASSIUM SERUM 3.8 MEQ/L (3.5-5.1); SODIUM LEVEL 137 MEQ/L (136-145)
[2021-03-02] MEDS: TIOTROPIUM INHALER/CAPSULE (SPIRIVA) INH SCH (07:22)
[2021-03-02] MEDS: COMBIVENT RESPIMAT 100-20MCG INHALER 4GM INH SCH ×4 (07:22→19:32)
[2021-03-02] MEDS: SYMBICORT 160/4.5MCG INHALER 6GM INH SCH ×2 (07:22→19:32)
[2021-03-02] MEDS: HumaLOG INSULIN (NovoLOG) PER UNIT SC SCH ×2 (07:30→12:26)
[2021-03-02] MEDS: rifAMPin 150MG CAPSULE PO SCH (10:06)
[2021-03-02] MEDS: IRON POLYSAC (NIFEREX) 150 MG CAP PO SCH ×2 (10:06→20:24)
[2021-03-02] MEDS: MONTELUKAST 10 MG TAB PO SCH (10:07)
[2021-03-02] MEDS: ATORVASTATIN 20 MG TAB PO SCH (10:07)
[2021-03-02] MEDS: LACTOBACILLUS ACIDOPHILUS CAP (BACID) PO SCH ×4 (10:07→20:24)
[2021-03-02] MEDS: ETHAMBUTOL 400MG TAB PO SCH (10:08)
[2021-03-02] MEDS: AZITHROMYCIN 250MG TABLET PO SCH (10:08)
[2021-03-02] MEDS: APIXABAN 2.5 MG TAB (ELIQUIS) PO SCH ×2 (10:09→20:24)
[2021-03-02] MEDS: METOPROLOL TART 12.5 MG PER 1/2 TAB PO SCH ×2 (12:06→20:24)
[2021-03-02 17:56] LABS: HEMOGLOBIN A1c 5.8 %
[2021-03-02 21:00] VITALS: BP 153/65
[2021-03-03] MEDS: ALBUTEROL 90 MCG/ACT 8GM HFA INHALER INH PRN ×2 (03:01→23:08)
[2021-03-03] MEDS: MEROPENEM INJ 1 GM in IV 1 EA IV SCH ×3 (03:06→18:09)
[2021-03-03 06:00] VITALS: BP 149/59
[2021-03-03 06:16] LABS: BASO # 0.1 10^3/uL (0.0-0.2); BASO % 0.6 % (0.0-1.0); EOS # 0.3 10^3/uL (0.0-0.5); EOS % 3.1 % (0.0-3.0); HEMATOCRIT 33.8 % (36.0-47.0); HEMOGLOBIN 9.3 g/dl (12.0-15.5); LYMPH % 12.6 % (24.0-44.0); MEAN CORPUSCULAR HEMOGLOBIN 22.1 pg (27.0-33.0); MEAN CORPUSCULAR HGB CONC 27.5 g/dl (32.0-36.5); MEAN CORPUSCULAR VOLUME 80.3 fl (80.0-96.0); MONO # 0.8 10^3/uL (0.0-0.8); MONO % 10.3 % (2.0-8.0); NEUTROPHILS # 5.9 10^3/uL (1.5-8.5); NEUTROPHILS % 72.5 % (36.0-66.0); PLATELET COUNT, AUTOMATED 435 10^3/uL (150-450); RED BLOOD COUNT 4.21 10^6/uL (4.00-5.40); WHITE BLOOD COUNT 8.2 10^3/uL (4.0-10.0)
[2021-03-03 06:38] LABS: BLOOD UREA NITROGEN 14 MG/DL (7-18); C REACTIVE PROTEIN QUANTITATIV 7.99 MG/DL (0.00-0.30); CALCIUM LEVEL 8.9 MG/DL (8.8-10.2); CARBON DIOXIDE LEVEL 38 MEQ/L (21-32); CHLORIDE LEVEL 98 MEQ/L (98-107); CREATININE FOR GFR 0.62 MG/DL (0.55-1.30); GLOMERULAR FILTRATION RATE > 60.0 (>39); GLUCOSE, FASTING 76 MG/DL (70-100); MAGNESIUM LEVEL 1.8 MG/DL (1.8-2.4); POTASSIUM SERUM 3.9 MEQ/L (3.5-5.1); SODIUM LEVEL 139 MEQ/L (136-145)
[2021-03-03] MEDS: SYMBICORT 160/4.5MCG INHALER 6GM INH SCH ×2 (07:29→19:35)
[2021-03-03] MEDS: TIOTROPIUM INHALER/CAPSULE (SPIRIVA) INH SCH (07:32)
[2021-03-03] MEDS: COMBIVENT RESPIMAT 100-20MCG INHALER 4GM INH SCH ×4 (08:15→19:35)
[2021-03-03] MEDS: AZITHROMYCIN 250MG TABLET PO SCH (09:04)
[2021-03-03] MEDS: MONTELUKAST 10 MG TAB PO SCH (09:04)
[2021-03-03] MEDS: ETHAMBUTOL 400MG TAB PO SCH (09:04)
[2021-03-03] MEDS: LACTOBACILLUS ACIDOPHILUS CAP (BACID) PO SCH ×4 (09:05→20:37)
[2021-03-03] MEDS: METOPROLOL TART 12.5 MG PER 1/2 TAB PO SCH ×2 (09:05→20:37)
[2021-03-03] MEDS: APIXABAN 2.5 MG TAB (ELIQUIS) PO SCH ×2 (09:06→20:37)
[2021-03-03] MEDS: IRON POLYSAC (NIFEREX) 150 MG CAP PO SCH ×2 (09:06→20:37)
[2021-03-03] MEDS: rifAMPin 150MG CAPSULE PO SCH (09:07)
[2021-03-03] MEDS ORDERED: FUROSEMIDE 40MG/4ML VIAL (J1940) IV ONE (11:30)
[2021-03-03] MEDS: ACETAMINOPHEN TAB 650MG DOSE (2X325MG) PO PRN (20:43)
[2021-03-03 22:00] VITALS: BP 112/59
[2021-03-04] MEDS: ALBUTEROL 90 MCG/ACT 8GM HFA INHALER INH PRN ×2 (03:18→22:54)
[2021-03-04] MEDS: MEROPENEM INJ 1 GM in IV 1 EA IV SCH ×3 (04:00→20:06)
[2021-03-04 06:00] VITALS: BP 133/45
[2021-03-04 06:53] LABS: BASO # 0.1 10^3/uL (0.0-0.2); BASO % 0.5 % (0.0-1.0); EOS # 0.3 10^3/uL (0.0-0.5); EOS % 2.6 % (0.0-3.0); HEMATOCRIT 37.7 % (36.0-47.0); HEMOGLOBIN 10.5 g/dl (12.0-15.5); LYMPH # 1.2 10^3/uL (1.5-5.0); LYMPH % 11.2 % (24.0-44.0); MEAN CORPUSCULAR HEMOGLOBIN 22.6 pg (27.0-33.0); MEAN CORPUSCULAR HGB CONC 27.9 g/dl (32.0-36.5); MEAN CORPUSCULAR VOLUME 81.1 fl (80.0-96.0); MONO # 0.9 10^3/uL (0.0-0.8); MONO % 8.2 % (2.0-8.0); NEUTROPHILS # 7.9 10^3/uL (1.5-8.5); NEUTROPHILS % 76.9 % (36.0-66.0); PLATELET COUNT, AUTOMATED 519 10^3/uL (150-450); RED BLOOD COUNT 4.65 10^6/uL (4.00-5.40); WHITE BLOOD COUNT 10.3 10^3/uL (4.0-10.0)
[2021-03-04 06:59] LABS: BLOOD UREA NITROGEN 14 MG/DL (7-18); C REACTIVE PROTEIN QUANTITATIV 9.51 MG/DL (0.00-0.30); CALCIUM LEVEL 9.3 MG/DL (8.8-10.2); CARBON DIOXIDE LEVEL 41 MEQ/L (21-32); CHLORIDE LEVEL 96 MEQ/L (98-107); CREATININE FOR GFR 0.57 MG/DL (0.55-1.30); GLOMERULAR FILTRATION RATE > 60.0 (>39); GLUCOSE, FASTING 73 MG/DL (70-100); MAGNESIUM LEVEL 1.6 MG/DL (1.8-2.4); SODIUM LEVEL 138 MEQ/L (136-145)
[2021-03-04 07:02] VITALS: O2SAT 97
[2021-03-04] MEDS: TIOTROPIUM INHALER/CAPSULE (SPIRIVA) INH SCH (07:44)
[2021-03-04] MEDS: COMBIVENT RESPIMAT 100-20MCG INHALER 4GM INH SCH ×4 (07:44→20:00)
[2021-03-04] MEDS: SYMBICORT 160/4.5MCG INHALER 6GM INH SCH ×2 (07:44→20:07)
[2021-03-04] MEDS: MONTELUKAST 10 MG TAB PO SCH (08:28)
[2021-03-04] MEDS: ETHAMBUTOL 400MG TAB PO SCH (08:31)
[2021-03-04] MEDS: IRON POLYSAC (NIFEREX) 150 MG CAP PO SCH ×2 (08:32→20:05)
[2021-03-04] MEDS: ATORVASTATIN 20 MG TAB PO SCH (08:32)
[2021-03-04] MEDS: AZITHROMYCIN 250MG TABLET PO SCH (08:33)
[2021-03-04] MEDS: LACTOBACILLUS ACIDOPHILUS CAP (BACID) PO SCH ×4 (08:33→20:05)
[2021-03-04] MEDS: APIXABAN 2.5 MG TAB (ELIQUIS) PO SCH ×2 (08:35→20:05)
[2021-03-04] MEDS: rifAMPin 150MG CAPSULE PO SCH (08:38)
[2021-03-04] MEDS: METOPROLOL TART 12.5 MG PER 1/2 TAB PO SCH ×2 (08:44→20:05)
[2021-03-04] MEDS: ACETAMINOPHEN TAB 650MG DOSE (2X325MG) PO PRN (10:41)
[2021-03-04 14:00] VITALS: BP 124/58
[2021-03-04 21:00] VITALS: BP 157/51
[2021-03-05] VITALS (7 sets, daily range): BP systolic 129–143; BP diastolic 48–59; O2SAT 94–96
[2021-03-05] MEDS ORDERED: FUROSEMIDE 20MG/2ML VIAL (J1940) IV ONE (00:15)
[2021-03-05] MEDS ORDERED: IPRATROPIUM 0.5MG/ALBUTEROL 2.5MG INH SOL UD 3ML (DUONEB) NEB ONE (00:15)
[2021-03-05] MEDS: MEROPENEM INJ 1 GM in IV 1 EA IV SCH ×3 (02:39→18:10)
[2021-03-05] MEDS: IPRATROPIUM 0.5MG/ALBUTEROL 2.5MG INH SOL UD 3ML (DUONEB) NEB PRN ×4 (05:16→15:37)
[2021-03-05] MEDS: SYMBICORT 160/4.5MCG INHALER 6GM INH SCH ×2 (07:37→20:15)
[2021-03-05] MEDS: COMBIVENT RESPIMAT 100-20MCG INHALER 4GM INH SCH ×4 (07:38→20:15)
[2021-03-05] MEDS: LACTOBACILLUS ACIDOPHILUS CAP (BACID) PO SCH ×4 (08:40→20:06)
[2021-03-05] MEDS: APIXABAN 2.5 MG TAB (ELIQUIS) PO SCH ×2 (08:41→20:06)
[2021-03-05] MEDS: ETHAMBUTOL 400MG TAB PO SCH (08:41)
[2021-03-05] MEDS: MONTELUKAST 10 MG TAB PO SCH (08:41)
[2021-03-05] MEDS: AZITHROMYCIN 250MG TABLET PO SCH (08:41)
[2021-03-05] MEDS: rifAMPin 150MG CAPSULE PO SCH (08:42)
[2021-03-05] MEDS: METOPROLOL TART 12.5 MG PER 1/2 TAB PO SCH ×2 (08:42→20:06)
[2021-03-05] MEDS: IRON POLYSAC (NIFEREX) 150 MG CAP PO SCH ×2 (08:44→20:06)
[2021-03-05 10:34] LABS: BASO % 0.5 % (0.0-1.0); EOS # 0.2 10^3/uL (0.0-0.5); EOS % 1.8 % (0.0-3.0); HEMATOCRIT 33.9 % (36.0-47.0); HEMOGLOBIN 9.4 g/dl (12.0-15.5); LYMPH # 0.8 10^3/uL (1.5-5.0); LYMPH % 9.5 % (24.0-44.0); MEAN CORPUSCULAR HEMOGLOBIN 22.7 pg (27.0-33.0); MEAN CORPUSCULAR HGB CONC 27.7 g/dl (32.0-36.5); MEAN CORPUSCULAR VOLUME 81.9 fl (80.0-96.0); MONO # 0.8 10^3/uL (0.0-0.8); MONO % 9.2 % (2.0-8.0); NEUTROPHILS # 6.9 10^3/uL (1.5-8.5); NEUTROPHILS % 78.5 % (36.0-66.0); PLATELET COUNT, AUTOMATED 414 10^3/uL (150-450); RED BLOOD COUNT 4.14 10^6/uL (4.00-5.40); WHITE BLOOD COUNT 8.7 10^3/uL (4.0-10.0)
[2021-03-05 11:24] LABS: BLOOD UREA NITROGEN 17 MG/DL (7-18); CALCIUM LEVEL 9.8 MG/DL (8.8-10.2); CARBON DIOXIDE LEVEL 48 MEQ/L (21-32); CHLORIDE LEVEL 95 MEQ/L (98-107); CREATININE FOR GFR 0.67 MG/DL (0.55-1.30); GLOMERULAR FILTRATION RATE > 60.0 (>39); GLUCOSE, FASTING 139 MG/DL (70-100); MAGNESIUM LEVEL 1.7 MG/DL (1.8-2.4); POTASSIUM SERUM 3.5 MEQ/L (3.5-5.1); SODIUM LEVEL 139 MEQ/L (136-145)
[2021-03-06] MEDS: IPRATROPIUM 0.5MG/ALBUTEROL 2.5MG INH SOL UD 3ML (DUONEB) NEB PRN ×6 (02:15→23:24)
[2021-03-06] MEDS: MEROPENEM INJ 1 GM in IV 1 EA IV SCH ×2 (02:15→12:09)
[2021-03-06 06:00] VITALS: BP 145/63
[2021-03-06 06:41] LABS: BASO % 0.5 % (0.0-1.0); EOS # 0.2 10^3/uL (0.0-0.5); EOS % 2.1 % (0.0-3.0); HEMATOCRIT 33.6 % (36.0-47.0); HEMOGLOBIN 9.2 g/dl (12.0-15.5); LYMPH % 12.7 % (24.0-44.0); MEAN CORPUSCULAR HEMOGLOBIN 22.6 pg (27.0-33.0); MEAN CORPUSCULAR HGB CONC 27.4 g/dl (32.0-36.5); MEAN CORPUSCULAR VOLUME 82.6 fl (80.0-96.0); MONO # 0.7 10^3/uL (0.0-0.8); MONO % 8.9 % (2.0-8.0); NEUTROPHILS % 75.2 % (36.0-66.0); PLATELET COUNT, AUTOMATED 391 10^3/uL (150-450); RED BLOOD COUNT 4.07 10^6/uL (4.00-5.40)
[2021-03-06 07:08] LABS: BLOOD UREA NITROGEN 18 MG/DL (7-18); CALCIUM LEVEL 9.9 MG/DL (8.8-10.2); CARBON DIOXIDE LEVEL 42 MEQ/L (21-32); CHLORIDE LEVEL 95 MEQ/L (98-107); CREATININE FOR GFR 0.56 MG/DL (0.55-1.30); GLOMERULAR FILTRATION RATE > 60.0 (>39); GLUCOSE, FASTING 72 MG/DL (70-100); MAGNESIUM LEVEL 1.8 MG/DL (1.8-2.4); SODIUM LEVEL 139 MEQ/L (136-145)
[2021-03-06] MEDS: COMBIVENT RESPIMAT 100-20MCG INHALER 4GM INH SCH ×4 (07:41→20:00)
[2021-03-06] MEDS: SYMBICORT 160/4.5MCG INHALER 6GM INH SCH ×2 (07:41→20:24)
[2021-03-06 08:48] VITALS: BP 142/76
[2021-03-06] MEDS: LACTOBACILLUS ACIDOPHILUS CAP (BACID) PO SCH ×4 (09:16→21:27)
[2021-03-06] MEDS: METOPROLOL TART 12.5 MG PER 1/2 TAB PO SCH ×2 (09:48→21:24)
[2021-03-06] MEDS: MONTELUKAST 10 MG TAB PO SCH (09:48)
[2021-03-06] MEDS: IRON POLYSAC (NIFEREX) 150 MG CAP PO SCH ×2 (09:48→21:25)
[2021-03-06] MEDS: rifAMPin 150MG CAPSULE PO SCH (09:50)
[2021-03-06] MEDS: APIXABAN 2.5 MG TAB (ELIQUIS) PO SCH ×2 (09:50→21:24)
[2021-03-06] MEDS: ATORVASTATIN 20 MG TAB PO SCH (09:51)
[2021-03-06] MEDS: AZITHROMYCIN 250MG TABLET PO SCH (09:51)
[2021-03-06] MEDS: ETHAMBUTOL 400MG TAB PO SCH (09:52)
[2021-03-06 10:07] VITALS: O2SAT 95
[2021-03-06 14:00] VITALS: BP 134/58
[2021-03-06 22:00] VITALS: BP 138/59
[2021-03-07 00:28] VITALS: O2SAT 96
[2021-03-07] MEDS: IPRATROPIUM 0.5MG/ALBUTEROL 2.5MG INH SOL UD 3ML (DUONEB) NEB PRN (04:23)
[2021-03-07 06:00] VITALS: BP 139/61
[2021-03-07 06:27] LABS: BASO # 0.1 10^3/uL (0.0-0.2); BASO % 0.7 % (0.0-1.0); EOS # 0.2 10^3/uL (0.0-0.5); EOS % 2.1 % (0.0-3.0); HEMATOCRIT 31.5 % (36.0-47.0); HEMOGLOBIN 8.9 g/dl (12.0-15.5); LYMPH # 0.8 10^3/uL (1.5-5.0); LYMPH % 10.9 % (24.0-44.0); MEAN CORPUSCULAR HEMOGLOBIN 22.9 pg (27.0-33.0); MEAN CORPUSCULAR HGB CONC 28.3 g/dl (32.0-36.5); MEAN CORPUSCULAR VOLUME 81.2 fl (80.0-96.0); MONO # 0.8 10^3/uL (0.0-0.8); MONO % 10.4 % (2.0-8.0); NEUTROPHILS # 5.6 10^3/uL (1.5-8.5); NEUTROPHILS % 75.2 % (36.0-66.0); PLATELET COUNT, AUTOMATED 357 10^3/uL (150-450); RED BLOOD COUNT 3.88 10^6/uL (4.00-5.40); WHITE BLOOD COUNT 7.5 10^3/uL (4.0-10.0)
[2021-03-07 06:49] LABS: BLOOD UREA NITROGEN 19 MG/DL (7-18); CALCIUM LEVEL 10.4 MG/DL (8.8-10.2); CARBON DIOXIDE LEVEL 42 MEQ/L (21-32); CHLORIDE LEVEL 95 MEQ/L (98-107); CREATININE FOR GFR 0.59 MG/DL (0.55-1.30); GLOMERULAR FILTRATION RATE > 60.0 (>39); GLUCOSE, FASTING 57 MG/DL (70-100); MAGNESIUM LEVEL 1.9 MG/DL (1.8-2.4); POTASSIUM SERUM 3.9 MEQ/L (3.5-5.1); SODIUM LEVEL 137 MEQ/L (136-145)
[2021-03-07] MEDS: SYMBICORT 160/4.5MCG INHALER 6GM INH SCH ×2 (07:39→20:00)
[2021-03-07] MEDS: COMBIVENT RESPIMAT 100-20MCG INHALER 4GM INH SCH ×4 (07:39→20:00)
[2021-03-07] MEDS: APIXABAN 2.5 MG TAB (ELIQUIS) PO SCH ×2 (08:06→20:28)
[2021-03-07] MEDS: LACTOBACILLUS ACIDOPHILUS CAP (BACID) PO SCH ×4 (08:06→20:27)
[2021-03-07] MEDS: rifAMPin 150MG CAPSULE PO SCH (08:06)
[2021-03-07] MEDS: AZITHROMYCIN 250MG TABLET PO SCH (08:06)
[2021-03-07] MEDS: MONTELUKAST 10 MG TAB PO SCH (08:06)
[2021-03-07] MEDS: ETHAMBUTOL 400MG TAB PO SCH (08:14)
[2021-03-07] MEDS ORDERED: FUROSEMIDE 40MG/4ML VIAL (J1940) IV ONE (10:25)
[2021-03-07] MEDS: IRON POLYSAC (NIFEREX) 150 MG CAP PO SCH ×2 (10:43→20:27)
[2021-03-07] MEDS: METOPROLOL TART 12.5 MG PER 1/2 TAB PO SCH ×2 (10:46→20:27)
[2021-03-07 12:52] VITALS: O2SAT 96
[2021-03-07 14:00] VITALS: BP 121/47
[2021-03-07 15:46] LABS: ALBUMIN 0.9 GM/DL (3.2-5.2); ALT/SGPT 9 U/L (12-78); BILIRUBIN,DIRECT < 0.1 MG/DL (0.0-0.2); BILIRUBIN,TOTAL 0.2 MG/DL (0.2-1.0); TOTAL PROTEIN 6.3 GM/DL (6.4-8.2)
[2021-03-07] MEDS ORDERED: MIRTAZAPINE 15 MG TAB PO SCH (21:00)
[2021-03-08] VITALS (11 sets, daily range): BP systolic 131–148; BP diastolic 55–64; O2SAT 85–99
[2021-03-08] MEDS: IPRATROPIUM 0.5MG/ALBUTEROL 2.5MG INH SOL UD 3ML (DUONEB) NEB PRN (01:22)
[2021-03-08 02:01] LABS: VENOUS BASE EXCESS 15.6 (-2.0-2.0); VENOUS HCO3 45.1 MEQ/L (23.0-27.0); VENOUS PARTIAL PRESSURE CO2 91.6 mmHg (38.0-50.0); VENOUS PARTIAL PRESSURE O2 90.5 mmHg (30.0-50.0); VENOUS STANDARD HCO3 39.4 MEQ/L; VENOUS TOTAL CO2 47.9 MEQ/L (24.0-28.0)
[2021-03-08 02:04] LABS: HEMATOCRIT 33.5 % (36.0-47.0); HEMOGLOBIN 9.3 g/dl (12.0-15.5); MEAN CORPUSCULAR HGB CONC 27.8 g/dl (32.0-36.5); MEAN CORPUSCULAR VOLUME 82.7 fl (80.0-96.0); PLATELET COUNT, AUTOMATED 365 10^3/uL (150-450); RED BLOOD COUNT 4.05 10^6/uL (4.00-5.40); WHITE BLOOD COUNT 8.8 10^3/uL (4.0-10.0)
[2021-03-08 02:31] LABS: BLOOD UREA NITROGEN 18 MG/DL (7-18); CALCIUM LEVEL 10.6 MG/DL (8.8-10.2); CARBON DIOXIDE LEVEL 45 MEQ/L (21-32); CHLORIDE LEVEL 95 MEQ/L (98-107); CK-MB VALUE MASS < 1.0 NG/ML (<3.6); CPK CREATINE PHOSPHOKINASE 13 U/L (26-192); CREATININE FOR GFR 0.58 MG/DL (0.55-1.30); GLOMERULAR FILTRATION RATE > 60.0 (>39); GLUCOSE, FASTING 87 MG/DL (70-100); MB/CK RELATIVE INDEX 7.69 (< OR =4); POTASSIUM SERUM 3.7 MEQ/L (3.5-5.1); SODIUM LEVEL 138 MEQ/L (136-145); TROPONIN I < 0.02 NG/ML (< 0.10)
[2021-03-08 02:32] LABS: NT-PRO BNP 2460 PG/ML (<125)
[2021-03-08 06:27] LABS: BASO # 0.1 10^3/uL (0.0-0.2); BASO % 0.6 % (0.0-1.0); EOS # 0.1 10^3/uL (0.0-0.5); EOS % 1.1 % (0.0-3.0); HEMATOCRIT 32.7 % (36.0-47.0); HEMOGLOBIN 8.9 g/dl (12.0-15.5); LYMPH # 0.9 10^3/uL (1.5-5.0); LYMPH % 10.1 % (24.0-44.0); MEAN CORPUSCULAR HEMOGLOBIN 22.1 pg (27.0-33.0); MEAN CORPUSCULAR HGB CONC 27.2 g/dl (32.0-36.5); MEAN CORPUSCULAR VOLUME 81.1 fl (80.0-96.0); MONO % 10.8 % (2.0-8.0); NEUTROPHILS # 6.9 10^3/uL (1.5-8.5); PLATELET COUNT, AUTOMATED 363 10^3/uL (150-450); RED BLOOD COUNT 4.03 10^6/uL (4.00-5.40); WHITE BLOOD COUNT 8.9 10^3/uL (4.0-10.0)
[2021-03-08 06:53] LABS: BLOOD UREA NITROGEN 16 MG/DL (7-18); CALCIUM LEVEL 10.1 MG/DL (8.8-10.2); CARBON DIOXIDE LEVEL 42 MEQ/L (21-32); CHLORIDE LEVEL 95 MEQ/L (98-107); CREATININE FOR GFR 0.55 MG/DL (0.55-1.30); GLOMERULAR FILTRATION RATE > 60.0 (>39); GLUCOSE, FASTING 60 MG/DL (70-100); MAGNESIUM LEVEL 1.9 MG/DL (1.8-2.4); SODIUM LEVEL 138 MEQ/L (136-145)
[2021-03-08] MEDS: COMBIVENT RESPIMAT 100-20MCG INHALER 4GM INH SCH ×2 (08:00→11:29)
[2021-03-08] MEDS: SYMBICORT 160/4.5MCG INHALER 6GM INH SCH (08:43)
[2021-03-08] MEDS: METOPROLOL TART 12.5 MG PER 1/2 TAB PO SCH (09:19)
[2021-03-08] MEDS: ATORVASTATIN 20 MG TAB PO SCH (09:20)
[2021-03-08] MEDS: LACTOBACILLUS ACIDOPHILUS CAP (BACID) PO SCH ×2 (09:20→12:21)
[2021-03-08] MEDS: AZITHROMYCIN 250MG TABLET PO SCH (09:20)
[2021-03-08] MEDS: MONTELUKAST 10 MG TAB PO SCH (09:20)
[2021-03-08] MEDS: APIXABAN 2.5 MG TAB (ELIQUIS) PO SCH (09:21)
[2021-03-08] MEDS: ETHAMBUTOL 400MG TAB PO SCH (09:23)
[2021-03-08] MEDS: rifAMPin 150MG CAPSULE PO SCH (09:23)
[2021-03-08] MEDS: IRON POLYSAC (NIFEREX) 150 MG CAP PO SCH (09:23)
[2021-03-08] MEDS ORDERED: LORazepam 1 MG TAB PO PRN (12:50)
[2021-03-08] MEDS ORDERED: ONDANSETRON 4 MG ORAL DISINTEGRATING TAB PO PRN (12:50)
[2021-03-08] MEDS ORDERED: BISACODYL 10 MG SUPP PR PRN (12:50)
[2021-03-08] MEDS ORDERED: ONDANSETRON 4MG/2ML VIAL IV PRN (12:50)
[2021-03-08] MEDS ORDERED: ACETAMINOPHEN 650 MG SUPP PR PRN (12:50)
[2021-03-08] MEDS ORDERED: MORPHINE SULFATE ORAL SOLN 10 MG/5 ML UD SL PRN (12:50)
[2021-03-08] MEDS ORDERED: SCOPOLAMINE 1MG TRANSDERMAL PATCH TOP PRN (12:50)
[2021-03-08] MEDS ORDERED: MORPHINE 2 MG/ML 1ML VIAL (J2270) IV PRN (12:50)
[2021-03-08] MEDS ORDERED: HYOSCYAMINE SULFATE 0.125 MG SUBL TABLET PO PRN (12:50)
[2021-03-08] MEDS ORDERED: LORazepam 2 MG/ML VIAL IV PRN (12:50)
[2021-03-08] MEDS ORDERED: FLEET ENEMA PR PRN (12:50)
[2021-03-08] MEDS ORDERED: ATROPINE SULFATE 1% OP SOLN 2 ML BTL SL PRN (12:50)
[2021-03-10 15:07] LABS: LEGIONELLA ANTIGEN URINE Negative (Negative)
== END 2021-03-08 18:34 | disposition expired | DRG 177 ==
LOC: M ED 11:09 → M ED INP 15:48 → ENRESERV 16:35 → M PCU 19:31 → M MSPAV 02-22 01:02 → M PCU 02-27 12:25 → M MSPAV 03-01 15:23 → M PCU 03-08 01:55
PROVIDERS: ADMIT Internal Medicine; ATTEND Family Medicine
PROC: 30233N1 Transfusion of Nonautologous Red Blood Cells into Peripheral Vein, Percutaneous Approach (ICD-10-PCS; 2021-02-18)
PROC: 0W993ZX Drainage of Right Pleural Cavity, Percutaneous Approach, Diagnostic (ICD-10-PCS; principal; 2021-02-27 16:06)
DX: J15.211 Pneumonia due to Methicillin susceptible Staphylococcus aureus (principal); I50.33 Acute on chronic diastolic (congestive) heart failure; E43 Unspecified severe protein-calorie malnutrition; J96.21 Acute and chronic respiratory failure with hypoxia; A41.9 Sepsis, unspecified organism; J85.1 Abscess of lung with pneumonia; J44.0 Chronic obstructive pulmonary disease with (acute) lower respiratory infection; I25.110 Atherosclerotic heart disease of native coronary artery with unstable angina pectoris; J98.11 Atelectasis; J96.12 Chronic respiratory failure with hypercapnia; Z68.1 Body mass index [BMI] 19.9 or less, adult; J90 Pleural effusion, not elsewhere classified; E87.2 Acidosis; Z51.5 Encounter for palliative care; Z66 Do not resuscitate; R19.7 Diarrhea, unspecified; R10.824 Left lower quadrant rebound abdominal tenderness; D72.829 Elevated white blood cell count, unspecified; R94.31 Abnormal electrocardiogram [ECG] [EKG]; R63.4 Abnormal weight loss; D50.9 Iron deficiency anemia, unspecified; J15.7 Pneumonia due to Mycoplasma pneumoniae; I48.0 Paroxysmal atrial fibrillation; L89.151 Pressure ulcer of sacral region, stage 1; I10 Essential (primary) hypertension; H91.93 Unspecified hearing loss, bilateral; E11.9 Type 2 diabetes mellitus without complications; R11.2 Nausea with vomiting, unspecified; F17.200 Nicotine dependence, unspecified, uncomplicated; F32.9 Major depressive disorder, single episode, unspecified; J45.909 Unspecified asthma, uncomplicated; D63.8 Anemia in other chronic diseases classified elsewhere; K57.30 Diverticulosis of large intestine without perforation or abscess without bleeding; E78.5 Hyperlipidemia, unspecified; Z20.822 Contact with and (suspected) exposure to COVID-19; Z79.01 Long term (current) use of anticoagulants; Z79.899 Other long term (current) drug therapy; Z99.81 Dependence on supplemental oxygen; Z95.1 Presence of aortocoronary bypass graft; Z88.0 Allergy status to penicillin; Z98.49 Cataract extraction status, unspecified eye